=== PATIENT | male | born 1960 | race Caucasian/White ===

== ENCOUNTER 2024-05-27 13:55 | Emergency (ER) | payer MEDICARE, SELFPAY ==
--- NOTE | ~2024-05-27 | CT_ITS ---
EXAMINATION: CT diagnostic chest wo con DATE: 05/27/2024 15:13 INDICATION: R upper lateral chest pain TECHNIQUE: Computed tomography (CT) of the chest was performed without intravenous contrast. Addition al 3D reconstructions utilizing coronal maximum intensity projection (MIP) were performed. Automated exposure control and iterative reconstruction technique were employed. The dose-length product was 28 0.41 mGy-cm. COMPARISON: None FINDINGS: Minimal emphysema. Mild dependent atelectasis in the lower lobes. No pneumonia, pulmonary edema, pleu ral effusion or pneumothorax. Heart size is normal. Atherosclerotic coronary artery calcific lesion. No pericardial effusion. Thoracic aorta is normal in caliber. 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 No pathologically enlarged thoracic lymphadenopathy. Small sliding -type hiatal hernia. Mild thoracic spondylosis. Minimally displaced anterolateral right fifth rib fra cture. IMPRESSION: 1. Minimally displaced anterolateral right fifth rib fracture. No pneumothorax or other acute cardiop ulmonary disease. 2. Small sliding-type hiatal hernia. Reviewed, dictated and finalized at location A. IMPRESSION: 1. Minimally displaced anterolateral right fifth rib fracture. No pneumothorax or other acute cardiopulmonary disease. 2. Small sliding-type hiatal hernia.
--- OUTSIDE RECORDS SUMMARY | 2024-05-27 13:59 | XMS_ITS | Clinical Summary ---
Author Organization [facility] Address [facility] [place] [address] Care Team Providers Care Harmonica Maker Name Role Phone Unavailable Primary Care Provider Unavailabl e Social History Tobacco Use Types Packs/Day Years Used Date Smoking Tobacco: Never Assessed Sex and Gender Information Value Date Recorded Sex Assigned at Not on file Legal Sex Male 7:41 PM CDT Gender Identity Not on file Sexual Orientation Not on file Plan of Treatment Health Maintenance Due Date Last Done Comments Colorectal Cancer Screening Colonoscopy (10 Years) 1958 Hepatitis C 1976 DTaP, Tdap and Td Vaccines ( 1 - Tdap) 1977 Zoster Vaccines (1 of 2) 2008 Pneumococcal Vaccine: 65+ Ye ars (1 of 1 - PCV) 09/26/2023 COVID-19 Vaccine ( - 2023-2 5 season) 2023 Influenza Adult (#1) 2023 RSV Immunization or 60+ Years (1 - 1-dose 75+ series) 2033 Meningococcal B Vaccine Aged Out No l onger eligible based on patient's age to complete this topic Meningococcal Vaccine Aged Out No jake jerilyn eligible based on patient's age to complete this topic Pneumococcal Vaccine: Pediat rics (0 to 5 Years) and At-Risk Patients (6 to 64 Years) Aged Out No longer eligible b ased on patient's age to complete this topic RSV Immunizations Under 20 Months Aged Out No longer eligible based on patient's age to complete this topic
--- OUTSIDE RECORDS SUMMARY | 2024-05-27 13:59 | XMS_ITS | Clinical Summary ---
Author Organization [facility] [employer] Address [address] [place] [address] Care Team Providers Care Gis Consultant Name Role Phone Unavailable Primary Care Provider Unavailabl e Source Comments [facility] [employer],non-owned Affiliates and Associated Physician Practices is amultiple site organization consisting of ambulatory clinics and hospital sitesin [place], [place], [place] and [place]. This disclosure is being madepursuant to the Care Everywhere program and may not contain all information available regarding this patient. Last updated 17.[facility] [employer] Allergies Active Allergy Reactions Criticality Noted Date Comments Penicillins Urticaria Medium 06/08/2018 Immunizations Name Administration Dates Next Due TDAP (7yrs+) 06/08/2018 Social History Tobacco Use Types Packs/Day Years Used Date Smoking Tobacco: Never Assessed Sex and Gender Information Value Date Recorded Sex Assigned at Not on file Gender Identity Not on file Sexual Orientation Not on file Plan of Treatment Health Maintenance Due Date Last Done Comments COLOGUARD (AGES 45-75) - COL ON CA SCREENING 1958 COLON MONITORING 1958 COLONOSCOPY - COLON CA SCREENING 1958 CT COLONOGRAPHY - COLON CA SCREENING 1958 Colorectal Cancer Screening 1958 FIT - COLON CA SCREENING 1958 FLEX SIG - COLON CA SCREENING 1958 LIPID TESTING 1958 HIV SCREENING 1973 HEPATITIS C SCREENING 09/20/1976 PNEUMOCOCCAL VACCINE 50+ (1 of 1 - PCV) 2008 ZOSTER VACCINE (1 of 2) 2008 COVID-19 VACCINE ( - 2023-2 5 season) 2023 DEPRESSION SCREENING 02/24/2024 INFLUENZA VACCINE (Season Ended) 2024 DTAP/TDAP/TD VACCINES (2 - T d or Tdap) 06/08/2028 06/08/2018 Respiratory Syncytial Virus (RSV) Vaccine Pt: or over 60 yrs (1 - 1-dose 75+ series) 2033 HEPATITIS B VACCINE Aged Out No longe r eligible based on patient's age to complete this topic HIB VACCINE Aged Out No longer eligi ble based on patient's age to complete this topic HPV VACCINE Aged Out No longer eligi ble based on patient's age to complete this topic MENINGOCOCCAL (Group B) VACC INE SHARED DECISION-MAKING Aged Out No longer eligibl e based on patient's age to complete this topic MENINGOCOCCAL GROUPS A/C/Y/W VACCINE Aged Out No longer eligible b ased on patient's age to complete this topic
--- OUTSIDE RECORDS SUMMARY | 2024-05-27 13:59 | XMS_ITS | Clinical Summary ---
Author Organization [facility] Address [address] [place] [address] Care Team Providers Care Data Processing Equipment Repairer Name Role Phone Brandon De Paz MD Unavailable Malorie Cedillo DO Primary Care Provider [phone] Allergies Active Allergy Reactions Criticality Noted Date Comments [place] Nausea only Low 11/19/2023 Penicillins Hives,Swelling,Urticaria Medium 10/02/2013 Medications aspirin 81 mg enteric coated tablet Take 1 tablet (81 mg total) by mouth daily Active empagliflozin (JARDIANCE) 25 mg tabletIndicatio ns:type 2 diabetes mellitus Take 1 tablet (25 mg total) by mouth daily 90 tablet 1 4 12/10/19 25 Active tadalafiL (CIALIS) 5 mg tabletIndicatio ns:Erectile dysfunction associated with type 2 diabetes mellitus (HCC) Take 1 tablet (5 mg total) by mouth daily 30 tablet 2 5 Active amLODIPine (NORVASC) 10 mg tabletIndicatio ns:Hypertension associated with diabetes (HCC) TAKE 1 TABLET(10 MG) BY MOUTH EVERY NIGHT 90 tablet 1 5 Active losartan (COZAAR) 100 mg tabletIndicatio ns:Hypertension associated with diabetes (HCC),Type 2 diabetes mellitus without complication, without long-term current use of insulin (HCC) TAKE 1 TABLET(100 MG) BY MOUTH DAILY 90 tablet 1 5 Active tamsulosin (FLOMAX) 0.4 mg extended release capsuleIndicati ons:Benign prostatic hyperplasia without lower urinary tract symptoms TAKE 1 CAPSULE(0. 4 MG) BY MOUTH DAILY 100 capsule 5 Active metFORMIN (GLUCOPHAGE) 1,000 mg tabletIndicatio ns:Type 2 diabetes mellitus without complication, without long-term current use of insulin (HCC) TAKE 1 TABLET(100 0 MG) BY MOUTH TWICE DAILY WITH MEALS 180 tablet 1 5 Active atorvastatin (LIPITOR) 40 mg tabletIndicatio ns:Type 2 diabetes mellitus without complication, without long-term current use of insulin (HCC),Hyperlipi demia associated with type 2 diabetes mellitus (HCC),Presence of stent in coronary artery in patient with coronary artery disease TAKE 1 TABLET(40 MG) BY MOUTH EVERY NIGHT 100 tablet [address] (PROTONIX) 40 mg EC tablet Take 1 tablet (40 mg total) by mouth daily Active chlorthalidone (HYGROTON) 25 mg tablet Take 1 tablet (25 mg total) by mouth daily Active clopidogreL (PLAVIX) 75 mg tabletIndicatio ns:Presence of stent in coronary artery in patient with coronary artery disease TAKE 1 TABLET(75 MG) BY MOUTH DAILY 90 tablet 3 5 Active clopidogreL (PLAVIX) 75 mg tabletIndicatio ns:Thrombosis Prevention after PCI Take 1 tablet (75 mg total) by mouth daily 90 tablet 1 4 05/21/19 25 Discontinued Active Problems Problem Noted Date Diagnosed Date Stage 3a chronic kidney disease 04/12/2024 History of colon polyps 04/01/2024 Hx of colonic polyp 02/08/2024 Screening for colon cancer 01/14/2024 Class 1 obesity due to exces s calories with serious comorbidity and body mass index (BMI) of 30.0 to 30.9 in adult 12/10/2023 Coronary artery disease invo lving kob[place] coronary artery of [place] heart without angina pectoris 12/10/2023 Benign prostatic hyperplasia without lower urinary tract symptoms 12/10/2023 Assessment & Plan (12/10/2023 10:48 AM CDT): Continue current meds, however, will refer to urology, as patient remains symptomatic. Erectile dysfunction associa bob with type 2 diabetes mellitus 12/10/2023 Assessment & Plan (12/10/2023 10:49 AM CDT): Clinically improved, continue current prescription medications. Referred to urology. Cigarette nicotine dependence in remission 12/09 Assessment & Plan (12/10/2023 10:49 AM CDT): CT lung cancer screening ordered. H/O acute myocardial infarction 09/16/2023 Hypertension associated with stage 3a chronic kidney disease due to type 2 diabetes mellitus Assessment & Plan (12/10/2023 10:47 AM CDT): Blood pressure at goal less than 140/90, continue current prescription medications. Hyperlipidemia associated with type 2 diabetes m ellitus Assessment & Plan (12/10/2023 10:48 AM CDT): LDL at goal of less than 100, continue current prescription medications. Type 2 diabetes mellitus wit h stage 3a chronic kidney disease, without long-term current use of insulin Assessment & Plan (12/10/2023 10:48 AM CDT): A1c at goal of less than 8.0, continue current prescription medications. Presence of stent in coronar y artery in patient with coronary artery disease Assessment & Plan (12/10/2023 10:48 AM CDT): Asymptomatic. Stable. Continue current prescription medications. Resolved Problems Problem Noted Date Diagnosed Date Resolved Date Chest pain 10/29/2023 12/10/2023 Status post insertion of michelle g eluting coronary artery stent 10/13/2023 12/10/2023 Encounters Date Type Department Care Team Description 04/25/2024 Results Follow-Up [facility] Nephrology at [address] [place] [id number] David Moya MD 04/20/2024 12:25 PM TELECOMMUNICATION OPERATOR - 04/20/2024 11:59 PM TELECOMMUNICATION OPERATOR Hospital Encounter [facility] [address] [place] [address] CKD stage 3a, GFR 45-59 ml/min ([facility]) Discharge Disposition: Discharge to home or self care 04/12/2024 10:00 AM TELECOMMUNICATION OPERATOR Office Visit [facility] Nephrology at [place] [id number] [facility] [address] [place] [address] David Moya MD CKD stage 3a, GFR 45-59 ml/min (HCC) (Primary Dx); Hypertension associated with diabetes (HCC); Coronary artery disease involving [place] coronary artery of [place] heart without angina pectoris; Proteinuria, unspecified type; Essential hypertension; Type 2 diabetes mellitus with stage 3a chronic kidney disease, without long-term current use of insulin (HCC) 04/01/2024 Orders Only [facility] Gastroenterology at [place] [id number] [facility] [address] [place] [address] Jason Reis MD History of colon polyps (Primary Dx) 03/30/2024 8:15 AM TELECOMMUNICATION OPERATOR Anesthesia Event [facility] [address] [place] [address] Jeff Hernandez MD 03/30/2024 8:00 AM TELECOMMUNICATION OPERATOR - 03/30/2024 8:30 AM TELECOMMUNICATION OPERATOR Surgery [facility] [address] [place] [address] Jason Reis MD COLON REMOVAL SNARE 03/30/2024 6:48 AM TELECOMMUNICATION OPERATOR - 03/30/2024 9:51 AM TELECOMMUNICATION OPERATOR Hospital Encounter [facility] [address] [place] [address] Jason Reis MD Hx of colonic polyp Discharge Disposition: Discharge to home or self care 03/24/2024 2:24 PM TELECOMMUNICATION OPERATOR - 03/24/2024 11:59 PM TELECOMMUNICATION OPERATOR Hospital Encounter [facility] [address] [place] [address] Cigarette nicotine dependence in remission; Screening for AAA (abdominal aortic aneurysm); Personal history of tobacco use, presenting hazards to health Discharge Disposition: Discharge to home or self care 03/09/2024 Telephone [facility] Family Medicine at [facility] [address] [facility] [address] [place] [address] Malorie Cedillo, Med Refill 03/01/2024 Telephone [facility] Family Medicine at [place] [address] [facility] [address] [place] [address] Malorie Cedillo, DO Med Refill from Last 3 Months Immunizations Immunization Administration Dates Next Due Influenza, Trivalent, High D ose, Split, Preservative Free, Intramuscular 12/10/2023 Influenza, Unspecified 12/03/2022,02/04/2022,10/2020 Pneumococcal Conjugate Pcv20 12/10/2023(Deferred : Patient Refused) Tdap 06/08/2018 ZOSTER Recombinant 06/04/2023 Zoster, unspecified 12/03/2022 Surgical History Surgery Date Site/Laterality Comments CARDIAC STENT PLACEMENT 08/24/2023 KNEE SURGERY SURGERY SCROTAL / TESTICULAR FINGER SURGERY Left index amputation Medical History Medical History Date Comments Diabetes mellitus (HCC) Hyperlipidemia Hypertension Coronary artery disease Type 2 diabetes mellitus (HCC) Family History Medical History Relation Name Comments Heart disease Father Prostate cancer Father Lung cancer Mother Relation Name Status Comments Father Mother Social History Tobacco Use Types Packs/Day Years Used Date Smoking Tobacco: Former Cigarettes 1 50.6 0 02/23/1973 - 09/23/2023 Smokeless Tobacco: Never AUDIT-C Answer Date Recorded Q1: How often do you have a drink containing alc ohol? 2-3 times a week 04/12/2024 Q2: How many drinks containi ng alcohol do you have on a typical day when you are drinking? 5 or 6 04/12/2024 Q3: How often do you have si x or more drinks on one occasion? Less than monthly 04/12/2024 PHQ-2 Answer Date Recorded PHQ-2 Total Score (If total score is 3 or more points, staff should administer the PHQ-9) 0 12/10/2023 Personal Safety Answer Date Recorded Have you ever been in or are you currently in a harmful physical or emotional relationship or is someone making you feel afraid or unsafe? Denies 03/30/2024 Sex and Gender Information Value Date Recorded Sex Assigned at Not on file Legal Sex Male 9:43 PM TELECOMMUNICATION OPERATOR Gender Identity Not on file Sexual Orientation Not on file Obstetrics History Last Filed Vital Signs Vital Sign Reading Time Taken Comments Blood Pressure 126/77 04/12/2024 9:49 AM TELECOMMUNICATION OPERATOR Pulse 62 04/12/2024 9:49 AM TELECOMMUNICATION OPERATOR Temperature 36.4 C (97.5 F) 04/12/2024 9:49 AM TELECOMMUNICATION OPERATOR Respiratory Rate 15 03/30/2024 9:30 AM TELECOMMUNICATION OPERATOR Oxygen Saturation 99% 03/30/2024 9:30 AM TELECOMMUNICATION OPERATOR Inhaled Oxygen Concentration - - Weight 86.2 kg (190 lb) 04/12/2024 9:49 AM TELECOMMUNICATION OPERATOR Height 170.2 cm (5' 7 ) 04/12/2024 9:49 AM TELECOMMUNICATION OPERATOR Body Mass Index 29.76 04/12/2024 9:49 AM TELECOMMUNICATION OPERATOR Plan of Treatment Upcoming Encounters Date Type Department Care Team (Late st Contact Info) Description 09/29/2024 7:30 AM CDT Hospital Encounter [facility] [address] [place] [address] Jason Reis MD [address] [place] [address] DR MENDEZ [address] [place] [address] 09/29/2024 7:30 AM CDT - 09/29/2024 7:45 AM CDT Surgery [facility] [address] [place] [address] Jason Reis MD [address] [place] [address] DR MENDEZ [address] [place] [id number] COLONOSCOPY Scheduled Procedures Name Priority Associated Diagnoses Date/Ti me COLONOSCOPY History of colon polyps 09/29/2024 7:30 AM CDT Health Maintenance Due Date Last Done Comments Dilated Eye Exam 1960 Foot Exam 1960 Zoster Vaccine (2 of 2) 07/30/2023 06/04/2023, 12/03 Hemoglobin A1C 06/09/2024 12/10/2023 Lipid Panel 09/15/2024 09/16/2023 Colon Cancer Screening-Colonoscopy 09/27/2024 03/30/2024, 02/08/2024 Albumin Creatinine Ratio, Urine 12/09/2024 12/10/2023 Depression Screening 12/09/2024 12/10/2023 Pneumococcal vaccine 65+ (1 of 2 - PCV) 12/09/2024 Postponed from 1977 (Patient declined, but will receive in the future) Well Visit 65+ 12/09/2024 12/10/2023 eGFR 12/09/2024 12/10/2023, 10/25, 11/19/2023, Additional history exists Lung Cancer Screening 01/12/2025 01/12/2024 Fall Risk Assessment 02/07/2025 02/08/2024, 12/10/19 Prostate Cancer Screening-PSA 12/09/2025 12/10/2023 DTaP/Tdap/Td Vaccine (2 - Td or Tdap) 06/08/2028 06/08/2018 Covid-19 Vaccine Discontinued 06/15/2020, 05/26/2020 Hepatitis B Screening Completed 12/10/2023 Hepatitis C Screening Completed 12/10/2023 Influenza Vaccine Completed 12/10/2023, , 02/04/2022, Additional history exists Abdominal Aortic Aneurysm (AAA) Screen Completed 03/24/2024 Colon Cancer Screening-CT Colonography Discontinued 03/30/2024, 02/08/2024 Colon Cancer Screening-DNA Stool Discontinued 03/30/2024, 02/08/2024 Colon Cancer Screening-FIT Discontinued 03/30/2024, Colon Cancer Screening-Sigmoidoscopy Discontinued 03/30/2024, 02/08/2024 Medical Devices Implanted Type Area Hose Sprayer Device Identifier Shelf Expiration Date Model / Serial / Lot [employer] Cynthia Angio-Seal Vip Bondek-Plus 8fr .038in 70cm Hemostatic Latex Free [id number] - [id number] - [id number] Implanted:Qty : 1 on 11/19/2023 by Vipul Olvera MD PhD at [facility] Collagen N/A: Common Femoral Artery [employer] Cynthia 06/15/2024 [id number] / [id number] / [id number] Medtronic Card Vasc Surgery 2.50 X 26mm Shiloh [place] Rx Coronary Stent [id number] - [id number] - [id number] Implanted:Qty : 1 on 11/19/2023 by Vipul Olvera MD PhD at [facility] Stent N/A: Circumflex Coronary Artery Medtronic Card Vasc Surgery 05/18/2026 [id number] / [id number] / [id number] Procedures Procedure Name Priority Date/Time Associated Diagnosis Comments US KIDNEY COMPLETE Schedule Routine, Read Routine (OP Routine) 04/20/2024 1:23 PM TELECOMMUNICATION OPERATOR CKD stage 3a, GFR 45-59 ml/min (HCC) SURGICAL PATHOLOGY Routine 03/30/2024 8: 42 AM TELECOMMUNICATION OPERATOR Hx of colonic polyp COLON REMOVAL SNARE 03/30/2024 8 :18 AM TELECOMMUNICATION OPERATOR Hx of colonic polyp COLONOSCOPY 03/30/2024 8:09 AM TELECOMMUNICATION OPERATOR POCT GLUCOSE DEVICE Routine 03/30/2024 7 :25 AM TELECOMMUNICATION OPERATOR ABDOMINAL AORTIC ANEURYSM SCREENING Schedule Routine, Read Routine (OP Routine) 03/24/2024 3:25 PM TELECOMMUNICATION OPERATOR Cigarette nicotine dependence in remission Screening for AAA (abdominal aortic aneurysm) Personal history of tobacco use, presenting hazards to health CT LUNG CANCER SCREENING Schedule Routine, Read Routine (OP Routine) 01/12/2024 4:12 PM TELECOMMUNICATION OPERATOR Cigarette nicotine dependence in remission Personal history of tobacco use, presenting hazards to health HEPATITIS C ANTIBODY Routine 12/10/2023 11:41 AM CDT Need for hepatitis C screening test EGFR Routine 12/10/2023 11:41 AM CDT Hypertension associated with diabetes (HCC) Hyperlipidemia associated with type 2 diabetes mellitus (HCC) Type 2 diabetes mellitus without complication, without long-term current use of insulin (HCC) PSA SCREEN Routine 12/10/2023 11:41 AM CDT Screening PSA (prostate specific antigen) ALBUMIN CREATININE RATIO, URINE Routine 12/10/2023 11:36 AM CDT Hypertension associated with diabetes (HCC) Type 2 diabetes mellitus without complication, without long-term current use of insulin (HCC) POCT HEMOGLOBIN A1C Routine 12/10/2023 1 0:20 AM CDT Type 2 diabetes mellitus without complication, without long-term current use of insulin (HCC) POCT LIPID PANEL Routine 09/16/2023 9:16 AM CDT Acute myocardial infarction, unspecified PR type, unspecified artery (HCC) from Last 3 Months or Most Recently Relevant to Health Maintenance Results * US Kidney Complete (04/20/2024 1:23 PM TELECOMMUNICATION OPERATOR) Anatomical Region Laterality Modality Kidney N/A Ultrasound 04/24/2024 9:56 AM TELECOMMUNICATION OPERATOR Narrative 04/24/2024 9:57 AM TELECOMMUNICATION OPERATOR EXAM DESCRIPTION: US KIDNEY COMPLETE REASON FOR STUDY: Chronic kidney disease. TECHNIQUE: Ultrasound of the kidneys and urinary bladder was performed with grayscale imaging. COMPARISON: None. FINDINGS: RIGHT KIDNEY: The right kidney measures 12.6 cm in length. There is no hydronephrosis. There is normal cortical thickness and echogenicity. LEFT KIDNEY: The left kidney measures 12.3 cm in length. There is no hydronephrosis. There is normal cortical thickness and echogenicity. URINARY BLADDER: The urinary bladder, as visualized, appears unremarkable. The bilateral ureteral jets are visualized. OTHER: The liver is increased in echogenicity evidence of steatosis. IMPRESSION: Normal renal ultrasound. Hepatic steatosis. THIS IS AN ELECTRONICALLY VERIFIED FINAL REPORT 04/24/2024 9:57 AM - Electronically signed by David Baker M.D. T: Report ID: [id number] Reading Location: [id number] Procedure Note David Baker Jr., MD - 04/24/2024 EXAM DESCRIPTION: US KIDNEY COMPLETE REASON FOR STUDY: Chronic kidney disease. TECHNIQUE: Ultrasound of the kidneys and urinary bladder was performedwith grayscale imaging. COMPARISON: None. FINDINGS: RIGHT KIDNEY: The right kidney measures 12.6 cm in length.There is no hydronephrosis. There is normal cortical thickness and echogenicity. LEFT KIDNEY: The left kidney measures 12.3 cm in length. There is no hydronephrosis. There is normal cortical thickness and echogenicity. URINARY BLADDER: The urinary bladder, as visualized, appearsunremarkable. The bilateral ureteral jets are visualized. OTHER: The liver is increased in echogenicity evidence of steatosis. IMPRESSION: Normal renal ultrasound. Hepatic steatosis. THIS IS AN ELECTRONICALLY VERIFIED FINAL REPORT 04/24/2024 9:57 AM - Electronically signed by David Baker M.D. T: Report ID: [id number] Reading Location: [id number] David Moya MD [facility] PROCEDURES Final Result * Surgical pathology (03/30/2024 8:42 AM TELECOMMUNICATION OPERATOR) Tissue specimen (specimen) (Polyp(s), colon/colorectal, esophageal, gastric) 03/30/2024 8:42 AM TELECOMMUNICATION OPERATOR Narrative PATHOLOGY [facility] - 03/31/2024 2:15 PM TELECOMMUNICATION OPERATOR [facility] Department of Pathology [address] [place] [address] Note to Patients: This report may contain a detailed description of human tissue sent by a health care provider to the laboratory for pathologic evaluation. The content of this report is essential for diagnosis and may provide important critical findings. This information may be unfamiliar to patients to review without a medical professional present. It is advised that the patient review this report in the presence of a health care provider who can answer questions and explain the details. Final Report Patient Name: ISABEL GAITAN : 1960 (Age: 63) Gender: M Address: [address] [place] [address] Hospital #: [id number] Service: Gastro Location: Patient Type: [facility] OUTPATIENT Taken: 03/30/2024 Received: 03/30/2024 Accessioned: 03/30/2024 Reported: 03/31/2024 Physician(s): Gulshan Walters D.O. Diagnosis: A. Large bowel, ascending colon polyp, biopsy - Sessile serrated adenoma/lesion Misty Singh MD Report Electronically Reviewed and Signed Out By Misty Singh MD 03/31/2024 14:15:23 Specimen(s) Received: A: Ascending colon polyp Microscopic Description: Unless gross-only is specified, the final diagnosis for each specimen is based on a microscopic examination of each tissue sample. Clinical History: The patient is a 63-year-old man with a history of colon polyps. Operative procedure: Colonoscopy with biopsy. Gross Description Received in formalin, labeled with the patient s identifiers and ascending colon polyp hot snare and consists of a 0.5 cm lopez- red, polypoid tissue admixed with debris (resection margin inked black and bisected). Entirely submitted. Labeled A1. Jar 0. [facility]/03/30/2024 13:58 DOLLY Burgos, PA ([facility]) Microscopic slide review and interpretation for this case was performed at [facility], Department of Surgical Pathology, [address] [facility], [place] [id number] [id number] CLIA # [id number] us Jason Reis MD LAB PATHOLOGY ORDERABLES Final R esult PATHOLOGY [facility] * Colonoscopy (03/30/2024 8:09 AM TELECOMMUNICATION OPERATOR) Anatomical Region Laterality Modality Other Narrative Procedure Note Jason Reis MD - 03/30/2024 8:09 AM CST [facility] GI ENDOSCOPY Patient Name: Isabel Gaitan Procedure Date: 03/30/2024 8:09 AM Date of : 1960 Admit Type: Outpatient Age: 63 Gender: Male Attending MD: Jason Reis M.D. Room: [facility] ENDOSCOPY ROOM 03 Note Status: Finalized Procedure: Colonoscopy Indications: Screening for colorectal malignant neoplasm Referring MD: Providers: Jason Reis M.D. Medicines: Monitored Anesthesia Care Complications: No immediate complications. Estimated Blood Loss: Estimated blood loss: none. Procedure: Pre-Anesthesia Assessment: - Prior to the procedure, a History and Physicalwas performed, and patient medications and allergieswere reviewed. The risks and benefits of the procedureand the sedation options and risks were discussed withthe patient. All questions were answered and informed consent was obtained. Patient identification and proposed procedure were verified. After reviewingthe risks and benefits, the patient was deemed in satisfactory condition to undergo the procedure.The anesthesia plan was to use monitored anesthesiacare (MAC). Immediately prior to administration of medications, the patient was re-assessed foradequacy to receive sedatives. The heart rate, respiratory rate, oxygen saturations, blood pressure, adequacyof pulmonary ventilation, and response to care were monitored throughout the procedure. The physical status of the patient was re-assessed after the procedure. The benefits, risks and alternatives of theprocedure and sedation were discussed and informed consentwas obtained. All questions were answered. Please referto the signed informed consent document in the medical record. The scope was passed under direct vision.The Colonoscope was introduced through the anus and advanced to the cecum, identified by appendiceal orifice and ileocecal valve. The colonoscopy was performed without difficulty. The patient tolerated the procedure well. The quality of the bowel preparation was inadequate, specifically in theright colon limiting visualization. Scope withdrawal time was 9 minutes. Prep was administered in a splitdose. Findings: The perianal and digital rectal examinations were normal. A 10 mm polyp was found in the ascending colon. The polyp wassessile. The polyp was removed with a hot snare. Resection and retrieval were complete. Non-bleeding internal hemorrhoids were found during retroflexion. The hemorrhoids were small. The exam was otherwise without abnormality. Impression: - Preparation of the colon was inadequate. - One 10 mm polyp in the ascending colon, removedwith a hot snare. Resected and retrieved. - Non-bleeding internal hemorrhoids. - The examination was otherwise normal. Recommendation: - Patient has a contact number available for emergencies. The signs and symptoms of potential delayed complications were discussed with thepatient. Return to normal activities tomorrow. Written discharge instructions were provided to thepatient. - High fiber diet. - Continue present medications. - Await pathology results. - Repeat colonoscopy in 6 months with extendedbowel prep because the bowel preparation wassuboptimal. Jason Reis M.D. Jason Reis M.D. 03/30/2024 8:54:35 AM . Number of Addenda: 0 Note Initiated On: 03/30/2024 8:09 AM Recognized by the [place] [employer] for promoting quality in endoscopy us Jason Reis MD ENDOSCOPY PROCEDURES Final Resul t * POCT glucose (03/30/2024 7:25 AM TELECOMMUNICATION OPERATOR) Glucose, POC 99 70 - 199 mg/dL Blood 03/30/2024 7:25 AM TELECOMMUNICATION OPERATOR 03/30/2024 7:25 AM TELECOMMUNICATION OPERATOR us Jason Reis MD LAB POCT ORDERABLES - DEVICE Fin al Result [facility] [address] [facility] [place] [address] * US Abdominal Aortic Aneurysm Screening (03/24/2024 3:25 PM TELECOMMUNICATION OPERATOR) Anatomical Region Laterality Modality Abdomen Ultrasound 03/27/2024 7:21 AM TELECOMMUNICATION OPERATOR Narrative 03/27/2024 7:22 AM TELECOMMUNICATION OPERATOR EXAM DESCRIPTION: US ABDOMINAL AORTIC ANEURYSM SCREENING REASON FOR STUDY: personal history of tob use, cigarette use in remission TECHNIQUE: Grayscale images acquired of the aorta and stored on PACS. Selected color Doppler and spectral images recorded. COMPARISON: None. FINDINGS: AORTIC CALIBER MAXIMAL PROXIMAL: 2.3 x 2.3 cm. MID: 2.0 x 2.0 cm. DISTAL: 1.6 x 1.7 cm. ILIAC DIAMETER RIGHT: 0.7 x 0.8 cm. LEFT: 0.6 x 0.7 cm. OTHER: No other significant finding. IMPRESSION: No abdominal aortic aneurysm. REFERENCE: Please see below follow up recommendations for abdominal aortic aneurysm surveillance per Society for Vascular Surgery Guidelines: < 2.6 cm No follow up or future screenings necessary 2.62.9 cm Recommended ultrasound follow up every 5 years 3.0-3.4 cm Recommended ultrasound follow up every 3 years 3.5-3.9 cm Recommended ultrasound follow up every 12 months 4.0-4.9 cm Recommended ultrasound follow up every 12 months, vascular surgery consult 5.0-5.4 cm Recommended ultrasound follow up every 6 months, vascular surgery consult >= 5.5 cm Referral to vascular surgeon Based upon Society for Vascular Surgery Guidelines: J Vasc Surgery 2008 50: s2-s49; updated Feb 2017 J Vasc Surgery 67:2-77 THIS IS AN ELECTRONICALLY VERIFIED FINAL REPORT 03/27/2024 7:22 AM - Electronically signed by David Baker M.D. T: Report ID: [id number] Reading Location: [id number] Procedure Note David Baker Jr., MD - 03/27/2024 EXAM DESCRIPTION: US ABDOMINAL AORTIC ANEURYSM SCREENING REASON FOR STUDY: personal history of tob use, cigarette use inremission TECHNIQUE: Grayscale images acquired of the aorta and stored on PACS.Selected color Doppler and spectral images recorded. COMPARISON: None. FINDINGS: AORTIC CALIBER MAXIMAL PROXIMAL: 2.3 x 2.3 cm. MID: 2.0 x 2.0 cm. DISTAL: 1.6 x 1.7 cm. ILIAC DIAMETER RIGHT: 0.7 x 0.8 cm. LEFT: 0.6 x 0.7 cm. OTHER: No other significant finding. IMPRESSION: No abdominal aortic aneurysm. REFERENCE: Please see below follow up recommendations for abdominal aortic aneurysm surveillance per Society for Vascular Surgery Guidelines: < 2.6 cm No follow up or future screenings necessary 2.62.9 cm Recommended ultrasound follow up every 5 years 3.0-3.4 cm Recommended ultrasound follow up every 3 years 3.5-3.9 cm Recommended ultrasound follow up every 12 months 4.0-4.9 cm Recommended ultrasound follow up every 12 months, vascularsurgery consult 5.0-5.4 cm Recommended ultrasound follow up every 6 months, vascularsurgery consult >= 5.5 cm Referral to vascular surgeon Based upon Society for Vascular Surgery Guidelines: J Vasc Surgery 2009Oct 50: s2-s49; updated Feb 2017 J Vasc Surgery 67:2-77 THIS IS AN ELECTRONICALLY VERIFIED FINAL REPORT 03/27/2024 7:22 AM - Electronically signed by David Baker M.D. T: Report ID: [id number] Reading Location: [id number] Malorie Cedillo DO IMG US PROCEDURES Final Re sult * CT Lung Cancer Screening (01/12/2024 4:12 PM TELECOMMUNICATION OPERATOR) Anatomical Region Laterality Modality Chest N/A Computed Tomogra phy 01/18/2024 7:49 AM TELECOMMUNICATION OPERATOR Narrative 01/18/2024 7:52 AM TELECOMMUNICATION OPERATOR EXAM DESCRIPTION: CT LUNG CANCER SCREENING REASON FOR STUDY: Screening CT of the chest in a former smoker with a 50 pack year smoking history. Additional history: None. TECHNIQUE: Low dose CT scan of the chest was performed without intravenous contrast using helical scanning technique. The exam extends from the lung apices through the lung bases. Automatic exposure control was used as a dose optimization technique. NOTE: This study was performed for the specific purposes of lung cancer screening and is not an alternative to diagnostic chest CT. RADIATION DOSE: CT dose index volume (CTDIvol) = 2.25 mGy COMPARISON: None FINDINGS: SMOKING RELATED LUNG DISEASE: Mild centrilobular pulmonary emphysema. LUNG NODULES: No suspicious pulmonary nodules. CORONARY ARTERY CALCIFICATION: Present. OTHER: The heart appears mildly enlarged. Small mediastinal lymph nodes although without eladia enlargement by size criteria.. No acute findings in the visualized upper abdomen given low-dose technique. No acute skeletal abnormality. IMPRESSION: No suspicious pulmonary nodules. Mild pulmonary emphysema. Coronary artery calcification. Lung-RADS category 1: Negative. Recommendation: Low dose Screening CT of chest in 12 months. THIS IS AN ELECTRONICALLY VERIFIED FINAL REPORT 01/18/2024 7:52 AM - Electronically signed by Anibal Diez M.D., JR T: Report ID: [id number] Reading Location: [place] [address] Procedure Note Anibal Diez MD - 01/18/2024 EXAM DESCRIPTION: CT LUNG CANCER SCREENING REASON FOR STUDY: Screening CT of the chest in a former smoker with a50 pack year smoking history. Additional history: None. TECHNIQUE: Low dose CT scan of the chest was performed without intravenous contrast using helical scanning technique. The exam extends from the lung apices through the lung bases. Automatic exposure control was used as adose optimization technique. NOTE: This study was performed for the specific purposes of lung cancer screening and is not an alternative to diagnostic chest CT. RADIATION DOSE: CT dose index volume (CTDIvol) = 2.25 mGy COMPARISON: None FINDINGS: SMOKING RELATED LUNG DISEASE: Mild centrilobular pulmonary emphysema. LUNG NODULES: No suspicious pulmonary nodules. CORONARY ARTERY CALCIFICATION: Present. OTHER: The heart appears mildly enlarged. Small mediastinal lymph nodes although without eladia enlargement by size criteria.. No acute findingsin the visualized upper abdomen given low-dose technique. No acute skeletal abnormality. IMPRESSION: No suspicious pulmonary nodules. Mild pulmonary emphysema. Coronary artery calcification. Lung-RADS category 1: Negative. Recommendation: Low dose Screening CT of chest in 12 months. THIS IS AN ELECTRONICALLY VERIFIED FINAL REPORT 01/18/2024 7:52 AM - Electronically signed by Anibal Diez M.D., JR T: Report ID: [id number] Reading Location: [place] [address] Malorie Cedillo DO IMG CT PROCEDURES Final Re sult * (ABNORMAL) eGFR (12/10/2023 11:41 AM CDT) eGFR 57(L) >=60 mL/min/1. 73 m2 Comment: Interpretive Data Reference Interval Normal >/= 90 mL/min/1.73m2 Mildly decreased* 60 - 89 mL/min/1.73m2 Mildly to moderately decreased 45 - 59 mL/min/1.73m2 Moderately to severely decreased 30 - 44 mL/min/1.73m2 Severely decreased 15 - 29 mL/min/1.73m2 Kidney Failure < 15 mL/min/1.73m2 *Relative to young adult level Estimated glomerular filtration rate is determined by the 2020 CKD-EPI equation recommended by the National Kid[employer] (A Unifying Approach to GFR Estimation: Recommendations of the NKF-ASK Task Force on Reassessing the Inclusion of Race in Diagnosing Kidney Disease, JASN 2020). The CKD-EPI equation should not be used for patients with unstable renal function and has not been validated in children and those over 70. Current interpretive data was last reviewed 2020. Blood 12/10/2023 11:4 1 AM CDT 12/10/2023 12:02 PM CDT Malorie Cedillo DO LAB BLOOD ORDERABLES Final Result [facility] [address] [facility] [place] [address] * PSA screen (12/10/2023 11:41 AM CDT) PSA-Total 1.40 <=5.40 ng/mL Comment: Interpretive Data AGE SEX REFERENCE INTERVAL 0 minutes-150 years Female None 0 minutes-49 years Male None 50-59 years Male 0-3.90 60-69 years Male 0-5.40 70-79 years Male 0-6.20 80-150 years Male 0-6.20 The Russell PSA Total assay procedure was used. Results from different manufacturers or methods may not be comparable. Serial testing should be performed using the same method. Current interpretive data last revised 21. Blood 12/10/2023 11:4 1 AM CDT 12/10/2023 12:02 PM CDT Malorie Cedillo DO LAB BLOOD ORDERABLES Final Result Performing Organization Address [facility] de Phone Number [address] [address] * Hepatitis C antibody Blood (12/10/2023 11:41 AM CDT) Pathologist [facility] Hep C Ab Nonreactive Nonreactive Comment: Antibodies to HCV not detected. Does NOT exclude the possibility of recent exposure to HCV. Current interpretive data was last revised on 21 Interpretive Data Nonreactive: Antibodies to HCV not detected. Does NOT exclude the possibility of recent exposure to HCV. Equivocal: Equivocal for HCV antibodies. Supplemental molecular testing will be automatically performed to determine infection status in accordance with current CDC screening recommendations. Reactive: Positive for HCV antibodies. This may represent current or past HCV infection. Supplemental molecular testing will be automatically performed to determine current infection status in accordance with current CDC screening recommendations. Interpretive data was last revised on 2019. Blood 12/10/2023 11:4 1 AM CDT 12/10/2023 12:02 PM CDT Malorie Cedillo DO LAB MICROBIOLOGY - GENERAL ORDERABLES Final Result Performing Organization Address [facility] de Phone Number [address] [address] * (ABNORMAL) Albumin Creatinine Ratio, Urine (12/10/2023 11:36 AM CDT) Pathologist [facility] Albumin Ur 30.5 mg/L Comment: Interpretive Data No reference range established. Current interpretive data was last revised 2018. Creatinine Ur 99.5 mg/dL [facility] Comment: Interpretive Data No reference range established. Current interpretive data was last revised 2018. Albumin Creatinine Ratio, Ur 31(H) 1 - 29 mg/g [facility] Urine 12/10/2023 11:3 6 AM CDT 12/10/2023 12:13 PM CDT Malorie Cedillo DO LAB URINE ORDERABLES Final Result [facility] [address] [facility] [place] [address] * POCT hemoglobin A1c (12/10/2023 10:20 AM CDT) Hemoglobin A1C, POC 6.5 4.0 - 5.6 % Capillary blood 12/10/2023 1 0:20 AM CDT Malorie Cedillo DO POINT OF CARE TEST ORDERAB LES Final Result * POCT lipid panel (09/16/2023 9:16 AM CDT) Cholesterol, POC 159 mg/dL HDL, POC 28 mg/dL Triglycerides, POC 159 mg/dL LDL Cholesterol POC 99 mg/dL Chol/HDL Ratio, POC 5.7 Non-HDL Cholesterol, POC 131 mg/dL Cholesterol Total, POC 159 mg/dL Capillary blood 09/16/2023 9 :16 AM CDT Brandon De Paz MD POINT OF CARE TEST ORDER [place] Final Result from Last 3 Months or Most Recently Relevant to Health Maintenance Insurance [facility] MEDICARE ADVANTAGE [facility] UHC MEDICARE ADVANTAGE Advance Directives For more information, please contact: [phone] Documents on File Type Date Recorded Patient Head Of Stock Expl anation ADVANCE DIRECTIVE 12/10/2023 2:13 PM DNR * Full Code (Latest Code Status on File) Date Activated Date Inactivated Comments 11/19/2023 9:14 AM 11/19/2023 5:49 PM Care Teams Data Processing Equipment Repairer Relationship Specialty Start Date End Date Malorie Cedillo DO [address] [place] [address] [place] [id number] PCP - General Family Medicine 12/10/23 Brandon De Paz MD [address] [address] Consulting Physician Cardiology 11/20/23
--- OUTSIDE RECORDS SUMMARY | 2024-05-27 13:59 | XMS_ITS | Referral Summary ---
Author Organization [facility] Address [address] [place] [address] Care Team Providers Care Superintendent Power Name Role Phone Brandon De Paz MD Unavailable [phone] Malorie Cedillo DO Primary Care Provider [phone] Encounters Date Type Department Care Team Description 04/25/2024 Results Follow-Up [facility] Nephrology at [address] [address] David Moya MD 04/20/2024 12:25 PM TRICK RODEO RIDER - 04/20/2024 11:59 PM TRICK RODEO RIDER Hospital Encounter [address] [address] CKD stage 3a, GFR 45-59 ml/min (HCC) Discharge Disposition: Discharge to home or self care 04/12/2024 10:00 AM TRICK RODEO RIDER Office Visit [facility] Nephrology at [address] [phone] David Moya MD CKD stage 3a, GFR 45-59 ml/min (HCC) (Primary Dx); Hypertension associated with diabetes (HCC); 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; Proteinuria, unspecified type; Essential hypertension; Type 2 diabetes mellitus with stage 3a chronic kidney disease, without long-term current use of insulin (HCC) 04/01/2024 Orders Only [facility] Gastroenterology at [address] [place] [address] Jason Reis MD History of colon polyps (Primary Dx) 03/30/2024 8:15 AM TRICK RODEO RIDER Anesthesia Event [facility] GI Lab [address] [place] [address] Jeff Hernandez MD 03/30/2024 8:00 AM TRICK RODEO RIDER - 03/30/2024 8:30 AM TRICK RODEO RIDER Surgery [facility] GI [facility] [address] [place] [address] Jason Reis MD COLON REMOVAL SNARE 03/30/2024 6:48 AM TRICK RODEO RIDER - 03/30/2024 9:51 AM TRICK RODEO RIDER Hospital Encounter [facility] GI Lab [address] [place] [address] Jason Reis MD Hx of colonic polyp Discharge Disposition: Discharge to home or self care 03/24/2024 2:24 PM TRICK RODEO RIDER - 03/24/2024 11:59 PM TRICK RODEO RIDER Hospital Encounter [facility] [address] [place] [address] Cigarette nicotine dependence in remission; Screening for AAA (abdominal aortic aneurysm); Personal history of tobacco use, presenting hazards to health Discharge Disposition: Discharge to home or self care 03/09/2024 Telephone [facility] Family Medicine at [facility] [address] [place] [phone] Malorie Cedillo, DO Med Refill 03/01/2024 Telephone [facility] Family Medicine at [facility] [address] [place] [phone] Malorie Cedillo, DO Med Refill from Last 3 Months Allergies Active Allergy Reactions Criticality Noted Date Comments Given Nausea only Low 11/19/2023 Penicillins Hives,Swelling,Urticaria Medium 10/02/2013 Medications aspirin 81 mg enteric coated tablet Take 1 tablet (81 mg total) by mouth daily Active empagliflozin (JARDIANCE) 25 mg tabletIndicatio ns:type 2 diabetes mellitus Take 1 tablet (25 mg total) by mouth daily 90 tablet 1 12/09/20 25 Active tadalafiL (CIALIS) 5 mg tabletIndicatio ns:Erectile dysfunction associated with type 2 diabetes mellitus ([facility]) Take 1 tablet (5 mg total) by mouth daily 30 tablet 2 5 Active amLODIPine (NORVASC) 10 mg tabletIndicatio ns:Hypertension associated with diabetes ([facility]) TAKE 1 TABLET(10 MG) BY MOUTH EVERY NIGHT 90 tablet 1 5 Active losartan (COZAAR) 100 mg tabletIndicatio ns:Hypertension associated with diabetes ([facility]),Type 2 diabetes mellitus without complication, without long-term current use of insulin ([facility]) TAKE 1 TABLET(100 MG) BY MOUTH DAILY 90 tablet 1 5 Active tamsulosin (FLOMAX) 0.4 mg extended release capsuleIndicati ons:Benign prostatic hyperplasia without lower urinary tract symptoms TAKE 1 CAPSULE(0. 4 MG) BY MOUTH DAILY 100 capsule 5 Active metFORMIN (GLUCOPHAGE) 1,000 mg tabletIndicatio ns:Type 2 diabetes mellitus without complication, without long-term current use of insulin ([facility]) TAKE 1 TABLET(100 0 MG) BY MOUTH TWICE DAILY WITH MEALS 180 tablet 1 5 Active atorvastatin (LIPITOR) 40 mg tabletIndicatio ns:Type 2 diabetes mellitus without complication, without long-term current use of insulin ([facility]),Hyperlipi demia associated with type 2 diabetes mellitus ([facility]),Presence of stent in coronary artery in patient [...] adult 12/10/2023 Coronary artery disease invo lving upper sioux coronary artery of upper sioux heart without angina pectoris 12/10/2023 Benign prostatic [...] g eluting coronary artery stent 10/13/2023 12/10/2023 Immunizations Immunization Administration Dates Next Due Influenza, Trivalent, High D ose, Split, Preservative Free, Intramuscular 12/10/2023 Influenza, Unspecified 12/03/2022,02/04/2022,10/2020 Pneumococcal Conjugate Pcv20 12/10/2023(Deferred : Patient Refused) Tdap 06/08/2018 ZOSTER Recombinant 06/04/2023 Zoster, unspecified 12/03/2022 Social History Tobacco Use Types Packs/Day Years [...] on file Legal Sex Male 9:43 PM TRICK RODEO RIDER Gender Identity Not on file Sexual Orientation Not on file Last Filed Vital Signs Vital Sign Reading Time Taken Comments Blood Pressure 126/77 04/12/2024 9:49 AM TRICK RODEO RIDER Pulse 62 04/12/2024 9:49 AM TRICK RODEO RIDER Temperature 36.4 C (97.5 F) 04/12/2024 9:49 AM TRICK RODEO RIDER Respiratory Rate 15 03/30/2024 9:30 AM TRICK RODEO RIDER Oxygen Saturation 99% 03/30/2024 9:30 AM TRICK RODEO RIDER Inhaled Oxygen Concentration - - Weight 86.2 kg (190 lb) 04/12/2024 9:49 AM TRICK RODEO RIDER Height 170.2 cm (5' 7 ) 04/12/2024 9:49 AM TRICK RODEO RIDER Body Mass Index 29.76 04/12/2024 9:49 AM TRICK RODEO RIDER Plan of Treatment Upcoming Encounters Date Type Department Care Team (Late st Contact Info) Description 09/29/2024 7:30 AM CDT Hospital Encounter [facility] GI Lab [address] [place] [address] Jason Reis MD [address] [place] [address] DR MENDEZ [address] [place] [address] 09/29/2024 7:30 AM CDT - 09/29/2024 7:45 AM CDT Surgery [facility] GI Lab [address] [place] [address] Jason Reis MD [facility] [address] MEN[address] [place] [address] COLONOSCOPY Scheduled Procedures Name Priority Associated Diagnoses Date/Ti me COLONOSCOPY History of colon polyps 09/29/2024 7:30 AM CDT Medical Devices Implanted Type Area Picker / Packer Device Identifier Shelf Expiration Date Model / Serial / Lot [employer] Angio-Seal Vip Bondek-Plus 8fr .038in 70cm Hemostatic Latex Free [id number] - [id number] - [id number] Implanted:Qty : 1 on 11/19/2023 by Vipul Olvera MD PhD at [facility] Collagen N/A: Common Femoral Artery [employer] Cyn[employer] 06/15/2024 [id number] / [id number] / [id number] Medtronic Card Vasc Surgery 2.50 X 26mm [place] Rx Coronary Stent [id number] - [id number] - [id number] Implanted:Qty : 1 on 11/19/2023 by Vipul Olvera MD PhD at [facility] Stent N/A: Circumflex Coronary Artery Medtronic Card Vasc Surgery 05/18/2026 [id number] / [id number] / [id number] Procedures Procedure Name Priority Date/Time Associated Diagnosis Comments US KIDNEY COMPLETE Schedule Routine, Read Routine (OP Routine) 04/20/2024 1:23 PM TRICK RODEO RIDER CKD stage 3a, GFR 45-59 ml/min (HCC) SURGICAL PATHOLOGY Routine 03/30/2024 8: 42 AM TRICK RODEO RIDER Hx of colonic polyp COLON REMOVAL SNARE 03/30/2024 8 :18 AM TRICK RODEO RIDER Hx of colonic polyp COLONOSCOPY 03/30/2024 8:09 AM TRICK RODEO RIDER POCT GLUCOSE DEVICE Routine 03/30/2024 7 :25 AM TRICK RODEO RIDER ABDOMINAL AORTIC ANEURYSM SCREENING Schedule Routine, Read Routine (OP Routine) 03/24/2024 3:25 PM TRICK RODEO RIDER Cigarette nicotine dependence in remission Screening for AAA (abdominal aortic aneurysm) Personal history of tobacco use, presenting hazards to health CT LUNG CANCER SCREENING Schedule Routine, Read Routine (OP Routine) 01/12/2024 4:12 PM TRICK RODEO RIDER Cigarette nicotine dependence in remission Personal history [...] 9:16 AM CDT Acute myocardial infarction, unspecified CT type, unspecified artery (HCC) from Last 3 Months or Most Recently Relevant to Health Maintenance Results * US Kidney Complete (04/20/2024 1:23 PM TRICK RODEO RIDER) Anatomical Region Laterality Modality Kidney N/A Ultrasound 04/24/2024 9:56 AM TRICK RODEO RIDER Narrative 04/24/2024 9:57 AM TRICK RODEO RIDER EXAM DESCRIPTION: US KIDNEY COMPLETE REASON FOR [...] by David Baker M.D. T: Report ID: [id number] Reading Location: [place] [address] Procedure Note David Baker Jr., MD - [...] by David Baker M.D. T: Report ID: [id number] Reading Location: [place] [address] us David Moya MD IM US PROCEDURES Final Result * Surgical pathology (03/30/2024 8:42 AM TRICK RODEO RIDER) Tissue specimen (specimen) (Polyp(s), colon/colorectal, esophageal, gastric) 03/30/2024 8:42 AM TRICK RODEO RIDER Narrative PATHOLOGY [facility] - 03/31/2024 2:15 PM TRICK RODEO RIDER [facility] Department of Pathology [address] [place] [address] Note to Patients: This report may contain [...] : 1960 (Age: 63) Gender: M Address: [address] [place] [address] Hospital #: [id number] Service: Gastro Location: Patient Type: [facility] OUTPATIENT Taken: 03/30/2024 Received: 03/30/2024 Accessioned: [...] bisected). Entirely submitted. Labeled A1. Jar 0. [facility]/03/30/2024 13:58 DOLLY Burgos, PA (ASCP) Microscopic slide review and interpretation for this case was performed at [facility], Department of Surgical Pathology, [address] [facility], [place] [id number], [place] [id number] CLIA # [id number] us Jason Reis MD LAB PATHOLOGY ORDERABLES Final R esult PATHOLOGY [facility] * Colonoscopy (03/30/2024 8:09 AM TRICK RODEO RIDER) Anatomical Region Laterality Modality Other Narrative Procedure Note Jason Reis MD - 03/30/2024 8:09 AM CST [facility] GI ENDOSCOPY Patient Name: Isabel Gaitan Procedure Date: 03/30/2024 8:09 AM Date of : 1960 Admit Type: Outpatient Age: 63 Gender: Male Attending MD: Jason Reis M.D. Room: [facility] ENDOSCOPY ROOM 03 Note Status: Finalized Procedure: [...] On: 03/30/2024 8:09 AM Recognized by the [employer] for promoting quality in endoscopy us Jason Reis MD ENDOSCOPY PROCEDURES Final Resul t * POCT glucose (03/30/2024 7:25 AM TRICK RODEO RIDER) Glucose, POC 99 70 - 199 mg/dL Blood 03/30/2024 7:25 AM TRICK RODEO RIDER 03/30/2024 7:25 AM TRICK RODEO RIDER us Jason Reis MD LAB POCT ORDERABLES - DEVICE Fin al Result [id number] [address] [facility] Department [place] [address] * US Abdominal Aortic Aneurysm Screening (03/24/2024 3:25 PM TRICK RODEO RIDER) Anatomical Region Laterality Modality Abdomen Ultrasound 03/27/2024 7:21 AM TRICK RODEO RIDER Narrative 03/27/2024 7:22 AM TRICK RODEO RIDER EXAM DESCRIPTION: US ABDOMINAL AORTIC ANEURYSM SCREENING [...] by David Baker M.D. T: Report ID: [id number] Reading Location: [place] [address] Procedure Note David Baker Jr., MD - [...] by David Baker M.D. T: Report ID: [id number] Reading Location: [place] [address] us Malorie Cedillo DO IMG US PROCEDURES Final Re sult * CT Lung Cancer Screening (01/12/2024 4:12 PM TRICK RODEO RIDER) Anatomical Region Laterality Modality Chest N/A Computed Tomogra phy 01/18/2024 7:49 AM TRICK RODEO RIDER Narrative 01/18/2024 7:52 AM TRICK RODEO RIDER EXAM DESCRIPTION: CT LUNG CANCER SCREENING REASON [...] Anibal Diez M.D., JR T: Report ID: [id number] Reading Location: [place] [address] Procedure Note Anibal Diez MD - 01/18/2024 [...] Anibal Diez M.D., JR T: Report ID: [id number] Reading Location: [place] [address] us Malorie Cedillo DO IMG CT PROCEDURES Final [...] 1 AM CDT 12/10/2023 12:02 PM CDT us Malorie Cedillo DO LAB BLOOD ORDERABLES Final Result [facility] [address] [facility] Department of Laboratories [place], [place] [id number] * PSA screen (12/10/2023 11:41 AM CDT) [...] BLOOD ORDERABLES Final Result Performing Organization Address [facility] Co de Phone Number [facility] [address] [address] * Hepatitis C antibody Blood (12/10/2023 11:41 AM CDT) Pathologist [facility] Hep C Ab Nonreactive Nonreactive Comment: Antibodies [...] GENERAL ORDERABLES Final Result Performing Organization Address [facility] de Phone Number [address] [address] * (ABNORMAL) Albumin Creatinine Ratio, Urine (12/10/2023 11:36 AM CDT) Albumin Ur 30.5 mg/L Comment: Interpretive Data No reference range established. Current interpretive data was last revised 2018. Creatinine Ur 99.5 mg/dL [facility] Comment: Interpretive Data No reference range established. Current interpretive data was last revised 2018. Albumin Creatinine Ratio, Ur 31(H) 1 - 29 mg/g [facility] Urine 12/10/2023 11:3 6 AM CDT 12/10/2023 12:13 PM CDT Malorie Cedillo DO LAB URINE ORDERABLES Final Result [facility] [address] [facility] Department [place] [address] * POCT hemoglobin A1c (12/10/2023 10:20 AM [...] Most Recently Relevant to Health Maintenance Insurance [facility] MEDICARE ADVANTAGE [facility] UHC MEDICARE ADVANTAGE Advance Directives For more information, please contact: [phone] Documents on File Type Date Recorded Patient Machining Manager Expl anation ADVANCE DIRECTIVE 12/10/2023 2:13 PM DNR * Full Code (Latest Code Status on File) Date Activated Date Inactivated Comments 11/19/2023 9:14 AM 11/19/2023 5:49 PM Care Teams Superintendent Power Relationship Specialty Start Date End Date Malorie Cedillo DO [address] [facility] [address] [place] [address] PCP - General Family Medicine 12/10/23 Brandon De Paz MD [address] [facility] [address] [place] [address] Consulting Physician Cardiology 11/20/23
--- OUTSIDE RECORDS SUMMARY | 2024-05-27 13:59 | XMS_ITS | Encounter Summary ---
Author Organization [facility] Healthcare Address [address] [place] [address] Care Team Providers Care Supervisor Functional Testing Name Role Phone Brandon De Paz MD Unavailable [phone] Malorie Cedillo DO Primary Care Provider [phone] Encounter Details Date Type Department Care Team (Late st Contact Info) Description 04/25/2024 Results Follow-Up [facility] Nephrology at [address] [place] [address] David Moya MD [address] [place] [address] [address] [place] [address] Social History Tobacco Use Types Packs/Day Years [...] on file Legal Sex Male 9:43 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 Gender Identity Not on file Sexual Orientation Not on file documented as of this encounter Plan of Treatment Upcoming Encounters Date Type Department Care Team (Late st Contact Info) Description 09/29/2024 7:30 AM CDT Hospital Encounter [facility] GI Lab [address] [place] [address] Jason Reis MD [address] [facility] [address] [place] [address] 09/29/2024 7:30 AM CDT - 09/29/2024 7:45 AM CDT Surgery [facility] GI Lab [address] [place] [address] Jason Reis MD [address] [facility] [address] [place] [address] COLONOSCOPY Scheduled Procedures Name Priority Associated Diagnoses Date/Ti me COLONOSCOPY History of colon polyps 09/29/2024 7:30 AM CDT documented as of this encounter Visit Diagnoses Not on filedocumented in this encounter Care Teams Supervisor Functional Testing Relationship Specialty Start Date End Date Malorie Cedillo DO [address] [facility] [address] [place] [address] PCP - General Family Medicine 12/10/23 Brandon De Paz MD [address] [address] Consulting Physician Cardiology 11/20/23 documented as of this encounter
--- OUTSIDE RECORDS SUMMARY | 2024-05-27 13:59 | XMS_ITS | Clinical Summary ---
Author Organization [facility] Address [address] [place] [address] Care Team Providers Care Dye Range Feeder Name Role Phone Anju Ignacio APRN, JOSHUA Primary Care Pr ovider Allergies Active Allergy Reactions Criticality Noted Date Comments Bryan Extract Diarrhea 08/17/2023 Penicillins Hives Medium 06/08/2018 Medications amLODIPine (NORVASC) 10 MG Tablet Take 10 mg by mouth daily. 04/20/2023 Active atorvastatin (LIPITOR) 40 MG Tablet Take 40 mg by mouth daily. 04/20/2023 Active chlorthalidone (HYGROTON) 25 MG Tablet Take 25 mg by mouth daily. 04/20/2023 Active Jardiance 25 MG Tablet Take 25 mg by mouth daily. 04/20/2023 Active losartan (COZAAR) 100 MG Tablet Take 100 mg by mouth daily. 04/20/2023 Active metFORMIN (GLUCOPHAGE) 1000 MG Tablet Take 1,000 mg by mouth. 04/20/2023 Active tamsulosin (FLOMAX) 0.4 MG Capsule Take 0.4 mg by mouth every morning. 04/20/2023 Active aspirin 81 MG Chewable Tablet Take 1 Tablet by mouth daily. 100 Tablet 08/19/2023 Active clopidogrel (PLAVIX) 75 MG Tablet Take 1 Tablet by mouth daily. 90 Tablet 2 08/19/2023 Active Active Problems Problem Noted Date Diagnosed Date Acute non-ST elevation myocardial infarction (NS [place]ARY[place]) 08/17/2023 Sinus bradycardia 08/17/2023 Acute kidney injury 08/17/2023 Encounter for smoking cessation counseling 08/16 Diabetes mellitus 01/25/2023 Hyperlipidemia 01/25/2023 Hypertensive disorder 01/25/2023 Continuous tobacco abuse 11/05/2021 Social History Tobacco Use Types Packs/Day Years Used Date Smoking Tobacco: Never Smokeless Tobacco: Never Tobacco Cessation:Counseling Given: Not Answered Alcohol Use Standard Drinks/Week Comments Not Currently 0 (1 standard drink = 0.6 oz pur e alcohol) [facility] Utilities Answer Date Recorded In the past 12 months has e [employer], gas, oil, or water [employer] threatened to shut off services in your home? No 08/17/2023 Social Connection and Isolat ion Panel [NHANES] Answer Date Recorded In a typical week, how many times do you talk on the phone with family, friends, or neighbors? More than three times a week 08/17/2023 How often do you get togethe r with friends or relatives? More than three times a week 08/17/2023 How often do you attend chur or gnosticist services? More than 4 times per year 08/17/2023 Do you belong to any clubs o r organizations such as yarsanism groups, unions, fraternal or athletic groups, or school groups? Yes 08/17/2023 How often do you attend meet ings of the clubs or organizations you belong to? More than 4 times per year 08/17/2023 Are you , , di vorced, , never , or living with a partner? 08/17/2023 AUDIT-C Answer Date Recorded Q1: How often do you have a drink containing alc ohol? 2-3 times a week 08/17/2023 Q2: How many drinks containi ng alcohol do you have on a typical day when you are drinking? 5 or 6 08/17/2023 Q3: How often do you have si x or more drinks on one occasion? Less than monthly 08/17/2023 Overall Financial Resource Strain (CARDIA) Answe r Date Recorded How hard is it for you to pa y for the very basics like food, housing, medical care, and heating? Not hard at all 08/17/2023 [facility] [place] of Occupat ional Health - Occupational Stress Questionnaire Answer Date Recorded Do you feel stress - tense, restless, nervous, or anxious, or unable to sleep at night because your mind is troubled all the time - these days? Not at all 08/17/2023 Exercise Vital Sign Answer Date Recorde d On average, how many days pe r week do you engage in moderate to strenuous exercise (like a brisk walk)? 3 days 08/17/2023 On average, how many minutes do you engage in exercise at this level? 90 min 08/17/2023 Hunger Vital Sign Answer Date Recorded Within the past 12 months, y ou worried that your food would run out before you got the money to buy more. Never true 08/17/19 Within the past 12 months, t he food you bought just didn't last and you didn't have money to get more. Never true 08/17/2023 PRAPARE - Transportation Answer Date Re corded In the past 12 months, has l ack of transportation kept you from medical appointments or from getting medications? No 07/25 In the past 12 months, has l ack of transportation kept you from meetings, work, or from getting things needed for daily living? No 08/17/2023 Housing Stability Vital Sign Answer Angel e Recorded In the last 12 months, was t here a time when you were not able to pay the mortgage or rent on time? No 08/17/2023 In the past 12 months, how m any times have you moved where you were living? 1 08/17/2023 At any time in the past 12 m [facility], were you homeless or living in a penitentiary (including now)? 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 Gender Identity Not on file Sexual Orientation Not on file Last Filed Vital Signs Vital Sign Reading Time Taken Comments Blood Pressure 135/78 08/19/2023 8:02 AM CDT Pulse 51 08/19/2023 8:02 AM CDT Temperature 36.7 C (98 F) 08/19/2023 8:02 AM CDT Respiratory Rate 18 08/19/2023 8:02 AM CDT Oxygen Saturation 94% 08/19/2023 8:02 AM CDT Inhaled Oxygen Concentration - - Weight 87.1 kg (192 lb) 08/17/2023 11:10 PM CDT Height 170.2 cm (5' 7 ) 08/17/2023 11:10 PM CDT Body Mass Index 30.07 08/17/2023 11:10 PM CDT Plan of Treatment Health Maintenance Due Date Last Done Comments Diabetes: Eye Exam 1958 Diabetes: Foot Exam 1958 Diabetes: Hemoglobin A1c 1958 Hepatitis C Virus (HCV) Screening 1958 Pneumococcal Immunization (5 0+ years) (1 of 2 - PCV) 1977 Cologuard 2008 Immunochemical Fecal Occult Blood 2008 PSA Discussion 2013 Respiratory Syncytial Virus (RSV) Immunization (Adult) (1 - Risk 60-74 years 1-dose series) 2018 Colonoscopy 02/22/2023 02/22/2013 Colorectal Cancer Screening 02/22/2023 Zoster Immunization (2 of 2) 07/30/202312/2023, 12/03/2022 Influenza Immunization (#1) 10/25/202311/23, 02/04/2022, 01/01/2021 SARS-COV-2 Immunization ( - season) 2023 06/15/2020, 05/26/2020 Diabetes: Nephropathy Screening 08/16/2024 08/17/2023 02/22/2013 DTaP/Tdap/Td Immunization Discontinued 06/08/2018 TdaP Immunization Completed 06/08/2018 Hepatitis B Immunization Aged Out No longer eligible based on patient's age to complete this topic Meningococcal Immunization (ACWY) Aged Out No longer eligible based on patient's age to complete this topic Rotavirus Immunization Aged Out No lo nger eligible based on patient's age to complete this topic Medical Devices Implanted Type Area Psychiatric Rn Device Identifier Shelf Expiration Date Model / Serial / Lot System Coronary Stent Xience Skypoint Everolimus Eluting 3.50 Mm X 38 Mm / Rapid-Exchange - [id number] Implanted:Qty: 1 on 08/18/2023 by Wilber Magaña MD at [facility] IMPLANT Right: Coronary [employer] 01/28/2026 [id number] / [id number] Description:Mid RCA System Coronary Stent Xience Skypoint Everolimus Eluting 4.00 Mm X 23 Mm / Rapid-Exchange - [id number] Implanted:Qty: 1 on 08/18/2023 by Wilber Magaña MD at [facility] IMPLANT Right: Coronary [employer] 03/18/2026 [id number] / [id number] Description:RCA Device Perclose Prostyle Suture-Mediate d Closure And Repair System - [id number] Implanted:Qty: 1 on 08/18/2023 by Wilber [facility] at [facility] IMPLANT Right: Groin [employer] 04/22/2025 [id number] / [id number] / [id number] Procedures Procedure Name Priority Date/Time Associated Diagnosis Comments CMP (COMPREHENSIVE METABOLIC PANEL) STAT 08/17/2023 2:47 PM CDT from Last 3 Months or Most Recently Relevant to Health Maintenance Results * (ABNORMAL) CMP (Comprehensive Metabolic Panel) (08/17/2023 2:47 PM CDT) SODIUM 136 136 - 145 mmol/L 08/17/2023 3:08 PM CDT [facility] POTASSIUM 3.9 3.5 - 5.1 mmol/L 08/17/2023 3:08 PM CDT [facility] CHLORIDE 106 98 - 107 mmol/L 08/17/2023 3:08 PM CDT [facility] CO2, VENOUS 18(L) 22 - 30 mmol/L 08/17/2023 3:08 PM CDT [facility] ANION GAP 12.0 <18.0 mmol/L 08/17/2023 3:08 PM CDT [facility] GLUCOSE 133(H) 70 - 99 mg/dL 08/17/2023 3:08 PM CDT [facility] BUN 35(H) 8 - 26 mg/dL 08/17/2023 3:08 PM CDT [facility] CREATININE, BLOOD 2.42(H) 0.70 - 1.30 mg/dL 08/17/2023 3:08 PM CDT [facility] BUN/CREATININE RATIO 14 12 - 20 ratio 08/17/2023 3:08 PM CDT [facility] TOTAL PROTEIN 7.0 6.3 - 8.2 g/dL 08/17/2023 3:08 PM CDT [facility] ALBUMIN 4.2 3.5 - 5.0 g/dL 08/17/2023 3:08 PM CDT [facility] A/G RATIO 1.5 1.0 - 2.2 08/17/2023 3:08 PM CDT [facility] CALCIUM 9.2 8.7 - 10.5 mg/dL 08/17/2023 3:08 PM CDT [facility] T BILI 0.6 0.2 - 1.2 mg/dL 08/17/2023 3:08 PM CDT [facility] SGOT (AST) 24 5 - 34 U/L 08/17/2023 3:08 PM T [facility] SGPT (ALT) 20 0 - 55 U/L 08/17/2023 3:08 PM CDT [facility] ALKALINE PHOSPHATASE 38(L) 40 - 150 U/L 08/17/2023 3:08 PM CDT [facility] GFR, ESTIMATED 29(L) >=60 08/17/2023 3:08 PM T [facility] Comment: Creatinine Clearance is the preferred criteria for selecting drug dose adjustments in renally impaired patients. The GFR is provided as additional pertinent clinical information. GFR is reported in mL/min/1.73 sq m. Calculation based on the Chronic Kidney Disease Epidemiology Collaboration (CKD- EPI) equation refit without adjustment for race. GFR, EST. 33(L) >=60 024 3:08 PM CDT [facility] GFR, EST. NONAFRICAN 27(L) >=60 08/17/2023 3:08 PM T [facility] Blood Venipuncture / Unknown 08/17/2023 2:47 PM CDT 08/17/2023 2:51 PM CDT us Dann Mancini MD CHEMISTRY ORDERABLES Celena Esparza [facility] [address] [place] [address], from Last 3 Months or Most Recently Relevant to Health Maintenance Insurance Advance Directives * Full Code (Latest Code Status on File) Date Activated Date Inactivated Comments 08/17/2023 10:05 PM 08/19/2023 12:54 PM CPR-Full T reatment: FULL ARREST: Attempt Resuscitation/CPR wit intubation and mechanical ventilation. PRE-ARREST: Use entire range of life support measures to stabilize the patient. Care Teams Dye Range Feeder Relationship Specialty Start Date End Date Anju Ignacio, SKATE MAKER, SOFT IRON INSPECTOR [address] [place] [address] PCP - General Advanced Practice Nurse 08/17/23
--- NOTE | 2024-05-27 14:02 | ED_ITS ---
HPI - General Adult General Chief complaint: Chest Pain Stated complaint: Right rib pain-ran into a wall playing pickleball Time Seen by Provider: 05/27/24 14:02 Source: patient Mode of arrival: ambulatory Limitations: no limitations History of Present Illness HPI narrative: Patient is a 63-year-old male who presents ED with report of right lateral chest wall pain. Patient reports he was playing pickle ball on Thursday morning when he tripped and fell into a wall. Hit his right-sided chest against the wall. Has been having pain in his right lateral chest since then. Worse with movement and deep breathing. Denies feeling short of breath. Denies any other injuries with the fall. Denies head injury or LOC. Has not taken anything for pain. Related Data Allergies Allergy/AdvReac Type Severity Reaction Status Date / Time Penicillins Allergy Intermediate Swelling Verified 05/27/24 13:57 Review of Systems Review of Systems: All systems reviewed & are unremarkable except as noted in HPI. All systems reviewed & are unremarkable except as noted in HPI and below Exam Narrative: GENERAL: Well appearing, obese with BMI of 30.6, non-toxic, in no acute distress. HEAD: Normocephalic, atraumatic. RESPIRATORY: Airway patent, respirations nonlabored. Clear to auscultation bilaterally, no rales, rhonchi, wheezing. Lung sounds are equal bilaterally. No focal rhonchi. CARDIOVASCULAR: Regular rate and rhythm without murmurs, rubs, or gallops. ABDOMINAL: Soft, no tenderness throughout abdomen, nondistended. Normoactive BS. MUSCULOSKELETAL: Moves all extremities. No gross deformities. Focal reproducible tenderness to palpation along right upper/lateral anterior chest wall, into axillary region. SKIN: Warm, dry, normal color. NEURO: A&O X3. Speech clear. Cranial nerves II-XII grossly intact. Steady gait. No ataxic movements. PSYCHIATRIC: Appropriate mood and affect. Normal interaction. Course Vital Signs Vital signs: Vital Signs Temperature 97.7 F 05/27/24 14:08 Pulse Rate 79 05/27/24 14:08 Respiratory Rate 16 05/27/24 14:08 Blood Pressure 182/76 H 05/27/24 14:08 Pulse Oximetry 96 05/27/24 14:08 Temperature 97.7 F 05/27/24 14:08 Pulse Rate 65 05/27/24 15:36 Respiratory Rate 12 05/27/24 15:36 Blood Pressure 174/75 H 05/27/24 15:36 Pulse Oximetry 100 05/27/24 15:36 Oxygen Delivery Room Air 05/27/24 14:39 Medical Decision Making MDM Narrative Medical decision making narrative: Chest CT with evidence of single nondisplaced rib fracture. No pneumothorax or other cardiopulmonary abnormality. Consistent with exam and injury. Patient with distinct focal reproducible chest wall tenderness in area of rib fracture, pain present with movement and deep inspiration. Vitals are stable. No tachycardia or hypoxia. Very low suspicion for PE, ACS. Patient will be discharged with pain medication. Educated on incentive spirometer use. Advised close follow-up with PCP for further evaluation and repeat imaging. Patient given strict return precautions. He agrees with plan. Discharged in stable condition. Medical Records Medical records reviewed: Yes I reviewed the external patient's medical records. Vital Signs Vital Signs: Vital Signs Temperature 97.7 F 05/27/24 14:08 Pulse Rate 79 05/27/24 14:08 Respiratory Rate 16 05/27/24 14:08 Blood Pressure 182/76 H 05/27/24 14:08 Pulse Oximetry 96 05/27/24 14:08 Temperature 97.7 F 05/27/24 14:08 Pulse Rate 65 05/27/24 15:36 Respiratory Rate 12 05/27/24 15:36 Blood Pressure 174/75 H 05/27/24 15:36 Pulse Oximetry 100 05/27/24 15:36 Oxygen Delivery Room Air 05/27/24 14:39 Imaging Data Attestation: I personally reviewed and interpreted this imaging study as follows: Radiologist's impression: ITS Impressions Chest CT 05/27/24 15:20 IMPRESSION: 1. Minimally displaced anterolateral right fifth rib fracture. No pneumothorax or other acute cardiopulmonary disease. 2. Small sliding-type hiatal hernia. Discharge Plan Discharge Clinical Impression: Fall from ground level Fracture of rib Qualifiers: Encounter type: initial encounter Rib fracture type: single rib Fracture type: closed Laterality: right Qualified Code(s): S22.31XA - Fracture of one rib, right side, initial encounter for closed fracture Patient Disposition: Home, Self-Care Condition: Stable Instructions: Antibiotic Form, Rib Fracture (ED), Chest Wall Pain (ED) Additional Instructions: You were diagnosed with a rib fracture. Utilize incentive spirometer several times throughout the day to encourage deep breathing. Utilize Tylenol as needed for pain. Fishtail as needed for more severe pain. Utilize lidocaine patches to area of pain. Follow-up with your primary care doctor for further evaluation and repeat imaging in the future. Return to the ED if you experience worsening or severe pain, recurrent injury, shortness of breath, unable to keep down food or drink, or any other symptoms of concern. Patient Language: Bangladeshi Prescriptions: New lidocaine 5 % adhesive patch,medicated 1 patch topical DAILY Qty: 15 0RF Rx Instructions: leave on most painful area for up to 12 hrs hydrocodone-acetaminophen 5-325 mg tablet 1 tablet PO Q6H PRN (Reason: pain) Qty: 10 0RF Follow-up/Referrals: Mamadou,Malorie Recinos DO [Primary Care Provider] - Time of Disposition: 15:39
[2024-05-27 14:08] VITALS: BP 182/76; PULSE 79; RESP 16; TEMP 36.5; O2SAT 96
[2024-05-27 14:47] VITALS: BP 208/85; PULSE 66; RESP 17; O2SAT 100
--- OUTSIDE RECORDS SUMMARY | 2024-05-27 15:05 | XMS_ITS | Continuity of Care Document ---
Author Organization [facility] Address [address] [place] [address] Phone Care Team Providers Care Subassemblies Wirer Name Role Phone Chuck Christine Unavailable Unavailable Advance Directives Directive Yes / No Effective Date File Name No Information Encounters Encounter Description Practice Location Reason(s) For Visit Diagnoses Date Provider Providers Copied on Encounter [facility], [address] [place], [place], [id number], [place] tel:[phone] [facility] No Information [address] , [address], [place], [address], [place]. tel:[phone] Family History Family Member Type Diagnosis Age At Onset No Information Payers Payer name Insurance type Covered libertarian ID Authoriza tion(s) No Information Social History Type Description Quantity Date Captured Comments Sex Male Smoking Status No Information Chief Complaint And Reason For Visit No Information Reason For Referral Reason For Referral No Information History Of Present Illness Encounter Date Complaint History Of Prese nt Illness No Information Functional Status Date Functional Assessmen t No Information Instructions Date Instruction Additional Infor mation No Information Assessments Type Assessment Date No Information Patient Care Teams Name Effective Dates (start - stop) Status Members No Information
--- OUTSIDE RECORDS SUMMARY | 2024-05-27 15:05 | XMS_ITS | Data Portability ---
Author Organization [place] - [facility], Jama Sinha Address [address] [place] [address] Assessment No assessment recorded. Plan of Treatment Reminders Order Date Submit Date Provider Last Modified By Organization Details Last Modified Time Details Appointments None recorded. Lab CMP, serum or plasma 2023 NESTOR [facility] ([place]), [address] [place], [address], 4 09:16:41 HbA1c (hemoglobin A1c), blood 2023 024 [facility] ([place]), [address] [place], [address], 4 09:16:43 lipid panel, serum 2023 [facility] ([place]), [address] [place], [address], 4 09:16:42 microalbumi n/creatinin e, mass ratio, urine 2023 024 [facility] ([place]), [address] [place], [address], 4 09:16:42 PSA, serum or plasma 2023 024 [facility]), [address] [place], [address], 4 09:16:43 albumin/cre atinine, mass ratio, urine 2022 023 NELSON [facility] ([place]), [address], [place], [address], 3 08:28:17 Referral cardiologis t referral - Thank you for helping us care for our patients.. 2023 024 [facility], [address], [place], [address], 4 10:12:12 physical therapist referral 2023 024 NELSON [facility], [address] [place] [address], [address], 4 13:23:50 Procedures None recorded. Surgeries None recorded. Imaging None recorded. Medication Orders amlodipine 10 mg tablet 2022 023 [facility], [address] [place] [address], [address], 3 10:36:38 chlorthalid one 25 mg tablet 2022 023 [facility], [address] [place] [address], [address], 3 10:36:40 losartan 100 mg tablet 2022 023 [facility], [address] [place] [address], [address], 3 10:36:43 diclofenac 1 % topical gel 2022 023 [facility], [address] [place] [address], [address], 3 10:36:39 tamsulosin 0.4 mg capsule 2022 023 [facility], [address] [place] [address], [address], 4 13:10:06 empaglifloz in 25 mg tablet 2022 023 [facility], [address] [place] [address], [address], 3 10:36:42 metformin 500 mg tablet 2022 023 [facility], [address] [place] [address], [address], 4 14:16:24 OneTouch Ultra Test strips 2022 023 [facility], [address] [place] [address], [address], 3 10:50:33 atorvastati n 40 mg tablet 2022 023 [facility], [address] [place] [address], [address], 3 10:36:38 Patient TargetsNo targets recorded. Patient Instructions Encounter Date Encounter Id Patient Instructions Last Modified By Organization Details Last Modified Time 06/04/2023 [id number] smoking cessatio n counseling, greater than 3 minutes up to 10 minutes* [email or web address] Not available 06/10/2023 13:36:20 Reason for Referral Physical Therapist Referral for Pain of right shoulder joint Referring Physician: Anju Ignacio, Family Medicine, Encounter Date: 06/04/2023 Deputy Juvenile Officer Referral for Ac kotlik myocardial infarction needs a local cardiologis and a 3rd stent placed Thank you for helping us care for our patients.. Referring Physician: Myah Arenas Family Medicine, Encounter Date: 08/25/2023 Results Created Date Observation Date Name Description Value Unit Range Abnormal Flag Note LastModifiedBy Organization Detail LastModifiedTime 01/09/2001/08/2023 lab resul t xr report xr report Not Available Not Available 04:26:11 01/14/20 23 01/13/2023 lab resul t xr report xr report Not Available Not Available 04:26:12 01/30/20 23 01/30/2023 ALBUM IN/CR EATIN INE RATIO ,URIN E creatinine, urine 70.4 mg/dL not estab. Not Available [facility] ([facility]) [address] [facility] [place], [address], 01/30/2023 08:28:17 01/30/20 23 01/30/2023 ALBUM IN/CR EATIN INE RATIO ,URIN E albumin, urine 10.4 ug/mL not estab. Not Available [facility] ([facility]) [address] [facility] [place], [address], 01/30/2023 08:28:17 01/30/20 23 01/30/2023 ALBUM IN/CR EATIN INE RATIO ,URIN E alb/creat ratio 15 mg/g_ creat 0-29 Debbie l: 0 - 29 Moder ately incre ased: 30 - 300 Sever alessia incre ased: >300 Not Available [facility] ([facility]) [address] [place], [address], 01/30/2023 08:28:17 06/04/19 24 06/05/2023 COMP. METAB OLIC PANEL (14) glucose 150 mg/dL 70-99 above high normal Not Available [facility] ([facility]) [address] [place], [address], 06/05/2023 09:16:41 06/04/19 24 06/05/2023 COMP. METAB OLIC PANEL (14) BUN 27 mg/dL 8-27 Not Available [facility] ([facility]) [address] [place], [address], 06/05/2023 09:16:41 06/04/19 24 06/05/2023 COMP. METAB OLIC PANEL (14) creatinine 1.39 mg/dL 0.76-1 .27 above high normal Not Available [facility] ([facility]) [address] [place], [address], 06/05/2023 09:16:41 06/04/19 24 06/05/2023 COMP. METAB OLIC PANEL (14) eGFR 57 mL/mi n/1.7 3 >59 below low normal Not Available [facility] ([facility]) [address], [place], [address], 06/05/2023 09:16:41 06/04/19 24 06/05/2023 COMP. METAB OLIC PANEL (14) BUN/creatini ne ratio 19 10-24 Not Available [facility] ([facility]) [address] [facility] [place], [address], 06/05/2023 09:16:41 06/04/19 24 06/05/2023 COMP. METAB OLIC PANEL (14) sodium 139 mmol/ L 134-14 4 Not Available [facility] ([facility]) [address], [place], [address], 06/05/2023 09:16:41 06/04/19 24 06/05/2023 COMP. METAB OLIC PANEL (14) potassium 4.4 mmol/ L 3.5-5. 2 Not Available [facility] ([facility]) [address] [facility] [place], [address], 06/05/2023 09:16:41 06/04/19 24 06/05/2023 COMP. METAB OLIC PANEL (14) chloride 102 mmol/ L 96-106 Not Available [facility] ([facility]) [address] [facility] [place], [address], 06/05/2023 09:16:41 06/04/19 24 06/05/2023 COMP. METAB OLIC PANEL (14) carbon dioxide, total 21 mmol/ L 20-29 Not Available [facility] ([facility]) [address] [facility] [place], [address], 06/05/2023 09:16:41 06/04/19 24 06/05/2023 COMP. METAB OLIC PANEL (14) calcium 9.2 mg/dL 8.6-10 .2 Not Available [facility] ([facility]) [address], [place], [address], 06/05/2023 09:16:41 06/04/19 24 06/05/2023 COMP. METAB OLIC PANEL (14) protein, total 7.0 g/dL 6.0-8. 5 Not Available [facility] ([facility]) [address], [place], [address], 06/05/2023 09:16:41 06/04/19 24 06/05/2023 COMP. METAB OLIC PANEL (14) albumin 4.4 g/dL 3.9-4. 9 Not Available [facility] ([facility]) [address], [place], [address], 06/05/2023 09:16:41 06/04/19 24 06/05/2023 COMP. METAB OLIC PANEL (14) globulin, total 2.6 g/dL 1.5-4. 5 Not Available [facility] ([facility]) [address], [place], [address], 06/05/2023 09:16:41 06/04/19 24 06/05/2023 COMP. METAB OLIC PANEL (14) A/G ratio 1.7 1.2-2. 2 Not Available [facility] ([facility]) [address], [place], [address], 06/05/2023 09:16:41 06/04/19 24 06/05/2023 COMP. METAB OLIC PANEL (14) bilirubin, total 0.2 mg/dL 0.0-1. 2 Not Available [facility] ([facility]) [address], [place], [address], 06/05/2023 09:16:41 06/04/19 24 06/05/2023 COMP. METAB OLIC PANEL (14) alkaline phosphatase 46 IU/L 44-121 Not Available [facility]) [address] [facility] [place], [address], 06/05/2023 09:16:41 06/04/19 24 06/05/2023 COMP. METAB OLIC PANEL (14) AST (SGOT) 17 IU/L 0-40 Not Available [facility] ([facility]) [address] [facility] [place], [address], 06/05/2023 09:16:41 06/04/19 24 06/05/2023 COMP. METAB OLIC PANEL (14) ALT (SGPT) 19 IU/L 0-44 Not Available [facility] ([facility]) [address] [facility] [place], [address], 06/05/2023 09:16:41 06/04/19 24 06/05/2023 LIPID PANEL cholesterol, total 149 mg/dL 100-19 9 Not Available [facility] ([facility]) [address] [facility] [place], [address], 06/05/2023 09:16:42 06/04/19 24 06/05/2023 LIPID PANEL triglyceride s 65 mg/dL 0-149 Not Available [facility] ([facility]) [address] [facility] [place], [address], 06/05/2023 09:16:42 06/04/19 24 06/05/2023 LIPID PANEL HDL cholesterol 36 mg/dL >39 below low normal Not Available [facility] ([facility]) [address] [facility] [place], [address], 06/05/2023 09:16:42 06/04/19 24 06/05/2023 LIPID PANEL VLDL cholesterol brown 13 mg/dL 5-40 Not Available [facility] ([facility]) [address] [place], [address], 06/05/2023 09:16:42 06/04/19 24 06/05/2023 LIPID PANEL LDL chol calc ([facility]) 100 mg/dL 0-99 above high normal Not Available [facility] ([facility]) [address] [place], [address], 06/05/2023 09:16:42 06/04/19 24 06/05/2023 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 Not Available [facility] ([facility]) [address] [place], [address], 06/05/2023 09:16:42 06/04/19 24 06/05/2023 ALBUM IN/CR EAT RATIO , RANDO M UR albumin, urine 16.2 ug/mL not estab. Not Available [facility] ([facility]) [address] [place], [address], 06/05/2023 09:16:42 06/04/19 24 06/05/2023 ALBUM IN/CR EAT RATIO , RANDO M UR alb/creat ratio 21 mg/g_ creat 0-29 Debbie l: 0 - 29 Moder ately incre ased: 30 - 300 Sever alessia incre ased: >300 Not Available [facility] ([facility]) [address] [place], [address], 06/05/2023 09:16:42 06/04/19 24 06/04/2023 PSA TOTAL (REFL EX TO FREE) reflex criteria Commen t The perce nt free PSA is perfo rmed on a refle x basis only when the total PSA is betwe en 4.0 and 10.0 ng/mL . Not Available [facility] ([facility]) [address] [place], [address], 06/05/2023 09:16:43 06/04/1906/05/2023 PSA TOTAL (REFL EX TO FREE) prostate specific Ag 1.2 NG/mL 0.0-4. 0 Russell ECLIA metho dolog y. Accor ding to the Ameri can Urolo gical Assoc iatio n, Serum PSA shoul d decre ase and remai n at undet ectab le level s after radic al prost atect deepali. The AUA defin es bioch emica l recur rence as an initi al PSA value 0.2 ng/mL or great er follo wed by a subse quent confi rmato ry PSA value 0.2 ng/mL or great er. Value s obtai bnony with diffe rent assay metho ds or kits canno t be used inter donohue eably . Resul ts canno t be inter prete d as absol kotlik evide nce of the prese nce or absen ce of daniel ramírez se. Not Available [facility] ([facility]) [address], [place], [address], 06/05/2023 09:16:43 06/04/1906/05/2023 HEMOG LOBIN A1C hemoglobin A1C 7.5 % 4.8-5. 6 above high normal Predi abete s: 5.7 - 6.4 Diabe deisy: >6.4 Glyce ursula contr ol for adult s with diabe deisy: <7.0 Not Available [facility] ([facility]) [address] [facility] [address], [place], [address], 06/05/2023 09:16:43 10/29/1909/16/2023 lab* No observ ation record ed. [id number] [facility] [address], [place], [address], 10/29/2023 18:03:15 Result Notes None recorded. Problems Name Problem SNOMED Code Status Onset Date Resolution Date Notes Provider Name and Address Organization Details Recorded Time Depressiv e disorder 24343326 Active 2022 Anju Ignacio NP [address], [place], [address] , [place] - [facility] 3 18:21:53 Diabetes mellitus 16802550 Active 2022 Anju Ignacio NP [address], [place], [address] , [place] - [facility] 3 18:22:03 Hyperlipi demia 94445890 Active 2022 LDL 99 7 at cards office Myah Arenas MD [address], [place], [address] , [place] - [facility] 4 18:02:08 Hypertens stephanie disorder 32391568 Active 2022 Anju Ignacio NP [address], [place], [address] , [place] - [facility] 3 18:22:16 Smoker 39951679 Active 2022 Anju Ignacio NP [address], [place], [address] , [place] - [facility] 3 10:11:07 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 Anju Ignacio NP [address], [place], [address] , [place] - [facility] 3 10:12:21 Pain of right knee joint 910964939373 100 Active 2022 Anju Ignacio NP [address], [place], [address] , [place] - [facility] 3 10:34:22 Tobacco user 236437853 Active 2021 Tobacco user; PROBABIL ITY: 0 Confir mation: Probable Annotat edDispla y: Tobacco user Cla ssificat ion: Medical Lifecycl eDateTim e: 17:00:00 +00:00 Not Available [facility] 4 18:35:40 Acute myocardia l infarctio n 14956738 Active 2023 Danae Mei NP [address], [place], [address] , [place] [facility] 4 14:39:56 Problem Notes None recorded. Procedures Surgical History Date Name Laterality Status Provider Name and Address Organization Details Recorded Time 4 insertion of stent into vein completed Mariluz [place] [facility] 08/25/2023 13:19:09 4 colonoscopy completed Anju Ignacio NP [address], [place], [place], [address] [place] [address], [facility] 01/26/2023 18:25:21 4 surgical reduction of torsion of testis completed Anju Ignacio NP [address], [place] [address], [facility] 01/26/2023 18:25:39 3 Amputation of finger/thumb completed Anju Ignacio NP [address] [place] [address], [facility] 01/26/2023 18:26:50 extraction of cataract completed Anju Ignacio NP [address] [place] [address], [facility] 01/26/2023 18:24:28 amputation of thumb completed Anju Ignacio NP [address] [address], [facility] 01/26/2023 18:26:28 Imaging Results Imaging Date Name Status LastModified by Organizatio n Details LastModified Time 09/16/2023 lab* completed [facility] [address], [place], [address], 10/29/2023 18:03:15 Procedure Notes None recorded. Medical Equipment None Reported. Allergies Allergen ID Allergen Name Allergen Category Reaction Reaction Severity Criticality Documentation Date Start Date Code Code System Note Provider Name and Address Organization Details Recorded Time 434682 Product containin g penicilli n (product) medicatio n swelling Not available Not available 01/29/2023 94356 [id number] [place], [place] [facility] 3 10:11:08 [id number] Penicilli n Not available Not available Not available Not available 06/11/2023 86594 RxNorm Comme nt: React ion Class : Aller gy; Not Available [facility] 4 18:48:30 Medications Name Sig Start Date Stop Date Status Note LastModified by Organization Details LastModified Time losartan 50 mg tablet 10/22 completed StopType : Hard Stop Helio mckenzieN umber: [id number] T Bobo lls: 1 Barbra Gardner tor: Yes CSAS chedule: 0 active _status_ dt_tm: 11:47:58 AM Not Available Not Available Not Available atorvasta tin 40 mg tablet Take 1 tablet every day by oral route. 2022 active Not Available Not Available Not Avai lable metformin 500 mg tablet Take 2 tablets twice a day by oral route. 08/24 completed Not Available Not Available Not Available sildenafi l 50 mg tablet 1-2 tab Oral daily,LA N:as needed for erectile dysfunct ion 11/05 completed PRNInstr uctions: as needed for erectile dysfunct ion Stop Type: Physicia n Stop Helio mckenzieN umber: [id number] S cheduled PRN: Yes Tota lRefills : 1 Barbra Gardner tor: No CSASc hedule: 0 active _status_ dt_tm: 04/30/2021 8:48:08 AM Not Available Not Available Not Available atorvasta tin 10 mg tablet 08/08 completed StopType : Hard Stop Helio mckenzieN umber: [id number] T Bobo lls: 3 Barbra Gardner tor: Yes CSAS chedule: 0 active _status_ dt_tm: 02/05/20 8:30:51 AM Not Available Not Available Not Available clopidogr el 75 mg tablet TAKE 1 TABLET BY MOUTH DAILY active Not Available Not Available No t Available chlorthal idone 25 mg tablet Take 1 tablet every day by oral route. 2022 active Not Available Not Available Not Avai lable lancets Check blood sugar 2 times a weeks and as needed with meter. 2022 active StopType : Soft Stop Tot alRefill s: 3 Barbra Gardner tor: Yes acti ve_statu s_dt_tm: 3 11:57:31 AM Not Available Not Available Not Available tamsulosi n 0.4 mg capsule TAKE 1 CAPSULE BY MOUTH EVERY DAY AT BEDTIME. 2023 active Not Available Not Available Not Avai lable OneTouch Ultra Test strips USE 1 NEW TEST STRIP EACH TIME TO TEST BLOOD SUGARS 5 TIMES PER WEEK 2023 active Not Available Not Available Not Avai lable amitripty line 10 mg tablet 1 tab(s) Oral hs 11/05 completed StopType : Physicia n Stop [id number] S cheduled PRN: No Total Refills: 3 Consta ntIndica tor: Yes CSAS chedule: 0 active _status_ dt_tm: 8:51:11 AM Not Available Not Available Not Available amlodipin e 10 mg tablet Take 1 tablet every day by oral route. 2022 active Not Available Not Available Not Avai lable pantopraz ole 40 mg tablet,de layed release TAKE 1 TABLET BY MOUTH EVERY MORNING BEFORE BREAKFAS T active Not Available Not Available No t Available fluoxetin e 20 mg tablet Take 1 tablet every day by oral route. 01/26 completed Not Available Not Available Not Available metformin 1,000 mg tablet TAKE 1 TABLET BY MOUTH TWICE A DAY 2023 active Not Available Not Available Not Avai lable ibuprofen 600 mg tablet 1 tab(s) Oral tid,PRN: as needed for pain,Ins tr:Take with food or milk 02/04 completed PRNInstr uctions: as needed for pain Sto pType: Physicia n Stop Helio [facility] [id number] S cheduled PRN: Yes Tota lRefills : 2 Consta ntIndica tor: No CSASc hedule: 0 active _status_ dt_tm: 11:43:49 AM Not Available Not Available Not Available losartan 100 mg tablet Take 1 tablet every day by oral route. 2022 active Not Available Not Available Not Avai lable fluoxetin e 20 mg capsule 2 cap(s) Oral daily 08/24 completed Not Available Not Available Not Available atorvasta tin 10/18 completed Disconti nueDate: 11:45:00 AM Disco ntinueTy pe: User Manual DC StopT ype: Physicia n Stop Helio gIdentif icationN umber: [id number] T otalRefi lls: 0 Consta ntIndica tor: Yes CSAS chedule: 0 active _status_ dt_tm: 11:13:23 AM Not Available Not Available Not Available chlorthal idone 10/18 completed Disconti nueDate: 11:45:00 AM Disco ntinueTy pe: User Manual DC StopT ype: Physicia n Stop Helio gIdentif icationN umber: [id number] T otalRefi lls: 0 Consta ntIndica tor: Yes CSAS chedule: 0 active _status_ dt_tm: 11:13:23 AM Not Available Not Available Not Available losartan 10/18 completed Disconti nueDate: 11:45:00 AM Disco ntinueTy pe: User Manual DC StopT ype: Physicia n Stop Helio gIdentif icationN umber: [id number] T otalRefi lls: 0 Consta ntIndica tor: Yes CSAS chedule: 0 active _status_ dt_tm: 11:13:23 AM Not Available Not Available Not Available metformin 10/18 completed Disconti nueDate: 11:46:00 AM Disco ntinueTy pe: User Manual DC StopT ype: Physicia n Stop Helio gIdentif icationN umber: [id number] T otalRefi lls: 0 Consta ntIndica tor: Yes CSAS chedule: 0 active _status_ dt_tm: 11:13:23 AM Not Available Not Available Not Available diclofena c 1 % topical gel APPLY 2 GRAMS TO THE AFFECTED AREA(S) BY TOPICAL ROUTE 2 TIMES PER DAY as needed for pain 2022 active Not Available Not Available Not Avai lable Budeprion XL 150 mg 24 hr tablet, extended release 1 tab(s) Oral daily 07/03 completed Disconti nueDate: 2 8:13:00 AM Disco ntinueTy pe: User Manual DC StopT ype: Physicia n Stop Helio gIdentif icationN umber: [id number] S cheduled PRN: No Total Refills: 1 Consta ntIndica tor: Yes CSAS chedule: 0 active _status_ dt_tm: 2 10:51:09 AM Not Available Not Available Not Available empaglifl ozin 25 mg tablet Take 1 tablet every day by oral route. 2022 active Not Available Not Available Not Avai lable Jardiance 10 mg tablet 02/07 completed StopType : Hard Stop Helio Peñadentif icationN umber: [id number] T otalRefi lls: 3 Consta ntIndica tor: Yes CSAS chedule: 0 active _status_ dt_tm: 02/05/20 8:30:51 AM Not Available Not Available Not Available Shingrix (PF) 12/03 completed StopType : Physicia n Stop Helio gIdentif icationN umber: [id number] N extDoseD ate: 12/04/19 8:34:00 AM Const antIndic ator: No CSASc hedule: 0 active _status_ dt_tm: 12/04/19 23 8:34:41 AM Not Available Not Available Not Available OneTouch Ultra2 Meter Check blood sugar 2x weekly and as needed 2022 active StopType : Soft Stop Tot alRefill s: 0 Consta ntIndica tor: Yes acti ve_statu s_dt_tm: 3 11:57:31 AM Not Available Not Available Not Available Vitals Date Recorded Body height Body mass index (BMI) Body weight Heart rate Body temperature Oxygen saturation Oxygen saturation in Arterial blood by Pulse oximetry Respiratory rate Systolic blood pressure Diastolic blood pressure Provider Name and Address Organization Details Last Updated DateTime 3 167.64 cm 31.7 kg/m2 40839.2 6 g 66 /min 97.6 [degF] 98 % 98 % 16 /min 119 mm[Hg] 66 mm[Hg] CHANTELLE Valdez [place] [facility] 3 10:16:54 Date Recorded Body height Body mass index (BMI) Body weight Body temperature Oxygen saturation Oxygen saturation in Arterial blood by Pulse oximetry Heart rate Systolic blood pressure Diastolic blood pressure Provider Name and Address Organization Details Last Updated DateTime 4 167.64 cm 31.2 kg/m2 80657.3 3 g 98.1 [degF] 96 % 96 % 80 /min 132 mm[Hg] 74 mm[Hg] Mariluz [place] [facility] 4 09:08:12 Date Recorded Body height Body mass index (BMI) Body weight Body temperature Oxygen saturation Oxygen saturation in Arterial blood by Pulse oximetry Heart rate Systolic blood pressure Diastolic blood pressure Provider Name and Address Organization Details Last Updated DateTime 4 167.64 cm 30 kg/m2 29543.1 8 g 98.7 [degF] 98 % 98 % 72 /min 124 mm[Hg] 68 mm[Hg] Mariluz [place] [facility] 4 13:15:13 Social History Question Answer Notes LastModified by Organization D etails LastModified Time In The 14 Days Before Symptom Onset, Have You Had Close Contact With A Laboratory-confir med COVID-19 While That Case Was Ill? No Information not available 06/04/2023 Have You Been To An Area Known To Be High Risk For COVID-19? No [email or web address] Information not available 06/04/2023 Sex: Unknown Functional Status None recorded. Mental Status None recorded. Family History Relationship Description Onset Age of this Age Resolved Age Notes LastModified by Organization Details LastModified Time Father Malignant neoplastic disease [email or web address] Not available 2022 18:23:38 Father Heart disease [email or web address] Not available 2022 18:23:47 Mother Malignant neoplastic disease [email or web address] Not available 2022 18:23:38 Notes:Father: Cancer, Heart disease Mother: Cancer Medical History No medical history recorded. Immunizations Vaccine Type Date Status Note Provider Nam e and Address Organization Details Recorded Time zoster, unspecified formulation 3 completed Not Available [facility] 06/11/2023 18:22:08 influenza, unspecified formulation 2 completed Not Available [facility] 06/11/2023 18:22:08 influenza, unspecified formulation 3 completed Not Available [facility] 06/11/2023 18:22:08 influenza, unspecified formulation 1 completed Not Available [facility] 06/11/2023 18:22:08 zoster recombinant 4 completed [place], [place] - [facility] 06/04/2023 10:09:44 Past Encounters Encounter ID Performer Location Encounter Start Date Encounter Closed Date Diagnosis/Indication Diagnosis SNOMED-CT Code Diagnosis ICD10 Code Diagnosis Note [id number] CHARBEL Chauhan s [address] [place] [address] 01/29/2023 10:01:36 01/29/2023 16:50:38 Hypertensive disorder 46390375 I10 Diabetes mellitus 722429 09 E11.9 Hyperlipidemia 46551994 E78.5 Depressive disorder 3548 9007 F32.A Smoker 35133208 F17.200 Induration penis plastica 4744545 N48.6 Pain of ri ght knee joint [id number] 41500 M25.220 [id number] CHARBEL Chauhan s [address] [place] [address] 06/04/2023 09:02:33 06/12/2023 06:31:29 Adult health examination 020216480 Z00.00 Briefly discussed healthy diet and regular exercise.E ncouraged to be tobacco free.Encou raged to avoid binge drinking or more than 2 drinks per day. Annual eye exam and biannual dental cleanings recommende d. Discussed recommende d vaccines and screenings per HPI. RTC 3 months for transition of care visit. Diabetes mellitus 657743 09 E11.9 Labs today and will adjust meds as needed. Smoker 49763630 F17.[address] Chest due December Benign pro static hyperplasia 388893478 N40.1 Flomax not showing benefit. Discontinu e. Pain of ri ght shoulder joint [id number] 6281118 M25.511 Pain after throwing softball - has pain with pickleball .PT to eval and treat. Hypertensive disorder 38 184535 I10 Acceptable control. Continue to monitor in light of occasional dizziness. Encouraged good hydration. [id number] Myah Arenas MD [address] [place] [address] 08/25/2023 13:09:12 08/26/2023 08:41:52 Acute myocardial infarction 09162752 I21.9 reviewed with pt where his current stents are on image of coronary arteries/h eart online2 stents in RCA , future stent to be placed in circumflex advised pt to continue with routine activity but would hold off on exertional exercise until he sees cardiologi st again as 3rd stent was advised to be placed in 2-4 weeks referral placed for consultati on with [facility] cardiology --somewhat time constraine d as he does not have new PCP but changing to new insurance September 24, 2023 Essential hypertension 94880430 I10 well controlled on meds, continue as is , last labs done as hospitaliz ation last weekALL MEDS RECONCILED BY ME TODAY Preventive procedure 169 996353 Z29.89 d/w patient that he is on PPI likely due to being on two blood thinners and he may discuss with cardiology when he can stop as he does not want to be on this if not necessary ---PPI was started at his recent hospitaliz ation for NSTEMI Health Concerns Section Related Observation LastModified by Organization Detai ls LastModified Time None Recorded Concern Status LastModified by Organization Details LastModified Time None Recorded Advance Directives Directive None Recorded Payers Encounter Date Sequence Insurance Name Policy Number Policy Mccabe Covered Member ID Mccabe Member ID Guarantor Name 01/29/2023 1 [facility] [id number] Gregorio Gaitan [id number] Gregorio Gaitan 06/04/2023 1 [facility] [id number] Gregorio Polburak [id number] Gregorio Polburak 08/25/2023 1 [facility] [id number] Gregorio Gaitan [id number] Gregorio Gaitan Notes Date Note Type Note Provider Name and Address Organization Details Recorded Time 01/29/2023 text/html Had seen [facility] last year - had used a needle/injection for erections - got bruised and now has curvature to penis. The clinic offered to fix this for $5,000 with a wave therapy. No frequency or dysuria. Referred to urology. Started on tadalafil. Depression and anxiety: self discontinued fluoxetine. Feels like he is doing well.DM on metformin and januvia: Labs show persistent microalbuminuria: already on losartan, empaglifiozin. A1C is decent at 6.7.(DIltiazem is shown to be more effective a reducing microalbuminuria than amlodipine so will consider switching in a few weeks. )Gets a little dizzy if blood pressure gets under 120 or after a work out. Feels better after drinking/snack.Switche d to lower carb bread and beer.Home glucoses: 7 [place] [address]: [address]: [address] day [address]: 147HTN with CKD 2-3: on amlodipine, chlorthalidone and losartan (microalbuminuria).EKG done 12/2020.137/81, 147, 84, 127/86, 115/97, 131/77, 149/89, 118/74 HLD on atorvastatin 40mg daily. Smoker: 45+ pack year history. Quit 01/2021 but restarted 09/2021; now has 1-2 cigs per day.CT Chest normal 12/2022. Repeat in 12 months. Seeing [facility] for lesions that so far are benign. Anju Ignacio NP [address], [facility] [place], [address], [place] - [facility] 01/29/2023 16:50:50 06/04/2023 text/html Right shoulder p ain with certain degrees of ROM.Hurt when throwing a softball in February.Playing pickleball 2-3 weekly. Had seen [facility] last year - had used a needle/injection for erections - got bruised and now has curvature to penis. The clinic offered to fix this for $5,000 with a wave therapy. No frequency or dysuria. Referred to urology. Started on tadalafil. Started flomax-no change in LUTS. Depression and anxiety: self discontinued fluoxetine. Feels like he is doing well.DM on metformin and januvia: Labs show persistent microalbuminuria: already on losartan, empaglifiozin. A1C is decent at 6.7.(DIltiazem is shown to be more effective a reducing microalbuminuria than amlodipine so will consider switching in a few weeks. )Switched to lower carb bread and beer.Home glucoses: 7 day ave: [address] day [address]: [address] day [address]: 147HTN with CKD 2-3: on amlodipine, chlorthalidone and losartan (microalbuminuria).Get s a little dizzy if blood pressure gets under 120 or after a work out. Feels better after drinking/snack. Did not eat much with Lent so BP ran lower. Noted elevated BP at [place] with junk food.EKG done 12/2020.Home BP runs 130-140s/80 at homeHLD on atorvastatin 40mg daily.Smoker: 45+ pack year history. Quit 01/2021 but restarted 09/2021; now has 3 cigs per day.CT Chest normal 12/2022. Repeat in 12 months.Seeing [facility] for lesions that so far are benign. Diet: Unrestricted, watches sugar but it's hard Exercise: pickleball, walksSleep: nocturia 1-3 x per night.Caffeine: 2 cups of coffeeTobacco: 1ppd x 45 years, now down to 3 cigs per dayAlcohol: 3-4 beers most daysLives at home with: self, widowedSafe at homeEmployment: retired Anxiety or depression: I'm Okay , better when he stays social Dental Care: cleanings q 6 monthsVision Care: recently, has new glasses. ImmunizationsFlu shot: 12/03/2022Tdap: 2017?Pneumonia: Eligible as a smoker - declines but will considerShringrix: will complete series today.COVID: Primary series completed Recommended ScreeningsPSA: previously < 1Colonoscopy: due 4560-5645, normal 9 years agoLung cancer screen ( age > 50 & 20 pack yr hx): due December 2023HCV Screen: negative 09/2020 Anju Ignacio NP [address], [place], [address], [place] - [facility] 06/04/2023 09:59:42 08/25/2023 text/html seen last week i n ED and [facility] [place] [facility] Dept[facility] List as of . Acute Kidney injury creat 1.22 , 1.432. Acute non ST elevation myocardial infarction (INSTEM) (HCC)3. Sinus Bradycardia BMP creat 1.43---> 1.22, UA 3 + glucose CBC nl plt 162 Summary of hospital course:Gregorio Gaitan was admitted on 08/17/2023 . Please see H and P for details on admission.Gregorio Gaitan was admitted with dizziness, and fatigue. 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 His workup revealed sinus bradycardia and elevated troponin. Cardiology was involved. Underwent cardiac catheterization with successful PCI with 2 RADHA to RCA with scheduled outpatient PCI to circumflex in 2-4 weeks. Patient was placed on DA PT and high-dose statin.NSTEMI-status post cardiac catheterization with successful PCI with 2 RADHA to RCA. PCI to circumflex in 2-4 weeks in the outpatient setting. Aspirin/Plavix/high-do se statin.Type 2 DM-Jardiance 25 mg/metformin 1000 mg daily.HTN-Norvasc 10 mg/chlorthalidone 25 mg/losartan 100 mg. Blood pressure was low at the time of the discharge. Patient was advised to hold off his blood pressure medication until he sees his primary and measure his blood pressure every day, if it goes above 140 contact primary care physician's office. Patient voiced understanding.CAMERON on CKD stage IIIB-creatinine is trending down with CR level of 1.3.BPH-tamsulosinHLD- Lipitor 40 mg. Pt states he had 2 stents , needs another placed in 2-4 weeks but never received call from anyoneappears he was referred cannot say where but was referred to cardiac rehab in [place], again he prefers to do all his cardiac care at [place], [place] chest pain ? no, never had any , went to ED for low BP and feeling off and low, discovered to have NSTEMI---transferred to another hosp--got cath and stents x2 See DELMI Arenas MD [address], [place], [address], [place] - [facility] 08/25/2023 15:05:25
--- OUTSIDE RECORDS SUMMARY | 2024-05-27 15:06 | XMS_ITS | Encounter Summary ---
Author Organization [facility] Healthcare Address [address] [place] [address] Care Team Providers Care Business Analytics Faculty Member Name Role Phone Brandon De Paz MD Unavailable [phone] Malorie Cedillo DO Primary Care Provider [phone] Encounter Details Date Type Department Care Team (Late st Contact Info) Description 04/25/2024 Results Follow-Up [facility] Nephrology at [address] [place] [address] David Moya MD [address] [place] [address] [address] [place] [address] Social History Tobacco Use Types [...] on file 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 Gender Identity Not on file Sexual Orientation Not on file documented as of this encounter Plan of Treatment Upcoming Encounters Date Type Department Care Team (Late st Contact Info) Description 09/29/2024 7:30 AM CDT Hospital Encounter [facility] [address] [place] [address] Jason Reis MD [address] [place] [address] 09/29/2024 7:30 AM CDT - 09/29/2024 7:45 AM CDT Surgery [facility] [address] [place] [id number] Jason Reis MD [address] [place] [address] COLONOSCOPY Scheduled Procedures Name Priority Associated Diagnoses Date/Ti me COLONOSCOPY History of colon polyps 09/29/2024 7:30 AM CDT documented as of this encounter Visit Diagnoses Not on filedocumented in this encounter Care Teams Business Analytics Faculty Member Relationship Specialty Start Date End Date Malorie Cedillo DO [address] [place] [address] PCP - General Family Medicine 12/10/23 Brandon De Paz MD [address] [address] Consulting Physician Cardiology 11/20/23 documented as of this encounter
--- OUTSIDE RECORDS SUMMARY | 2024-05-27 15:06 | XMS_ITS | Clinical Summary ---
Author Organization [facility] Address [facility] [place] [address] Care Team Providers Care Mash Grinder Name Role Phone Unavailable Primary Care Provider [...]
--- OUTSIDE RECORDS SUMMARY | 2024-05-27 15:06 | XMS_ITS | Referral Summary ---
Author Organization [facility] Address [address] [place] [address] Care Team Providers Care Usability Architect Name Role Phone Brandon De Paz MD Unavailable [phone] Malorie Cedillo DO Primary Care Provider [phone] Encounters Date Type Department Care Team Description 04/25/2024 Results Follow-Up [facility] Nephrology at [address] [phone] David Moya MD 04/20/2024 12:25 PM DATE PITTER - 04/20/2024 11:59 PM DATE PITTER Hospital Encounter [address] [address] CKD stage 3a, GFR 45-59 ml/min (HCC) Discharge Disposition: Discharge to home or self care 04/12/2024 10:00 AM DATE PITTER Office Visit [facility] Nephrology at [address] [phone] David Moya MD CKD stage 3a, GFR 45-59 ml/min (HCC) (Primary Dx); Hypertension associated with diabetes (HCC); Coronary artery disease involving hoonah coronary artery of hoonah heart without angina pectoris; Proteinuria, unspecified type; Essential hypertension; Type 2 diabetes mellitus with stage 3a chronic kidney disease, without long-term current use of insulin (HCC) 04/01/2024 Orders Only [facility] Gastroenterology at [address] [place] [address] Jason Reis MD History of colon polyps (Primary Dx) 03/30/2024 8:15 AM DATE PITTER Anesthesia Event [facility] [address] [place] [address] Jeff Hernandez MD 03/30/2024 8:00 AM DATE PITTER - 03/30/2024 8:30 AM DATE PITTER Surgery [facility] [address] [place] [address] Jason Reis MD COLON REMOVAL SNARE 03/30/2024 6:48 AM DATE PITTER - 03/30/2024 9:51 AM DATE PITTER Hospital Encounter [facility] [address] [place] [address] Jason Reis MD Hx of colonic polyp Discharge Disposition: Discharge to home or self care 03/24/2024 2:24 PM DATE PITTER - 03/24/2024 11:59 PM DATE PITTER Hospital Encounter [facility] [address] [place] [address] Cigarette nicotine dependence in remission; Screening for AAA (abdominal aortic aneurysm); Personal history of tobacco use, presenting hazards to health Discharge Disposition: Discharge to home or self care 03/09/2024 Telephone [facility] Family Medicine at [facility] [address] [place] [phone] Malorie Cedillo, DO Med Refill 03/01/2024 Telephone [facility] Family Medicine at [facility] [address] [place] [phone] Malorie Cedillo, DO Med Refill from Last 3 Months Allergies Active Allergy Reactions Criticality Noted Date Comments Reading Nausea only Low 11/19/2023 Penicillins Hives,Swelling,Urticaria Medium 10/02/2013 Medications aspirin 81 mg enteric coated tablet Take 1 tablet (81 mg total) by mouth daily Active empagliflozin (JARDIANCE) 25 mg tabletIndicatio ns:type 2 diabetes mellitus Take 1 tablet (25 mg total) by mouth daily 90 tablet 1 12/09/20 25 Active tadalafiL (CIALIS) 5 mg tabletIndicatio ns:Erectile dysfunction associated with type 2 diabetes mellitus ([facility]) Take 1 tablet (5 mg total) by mouth daily 30 tablet 2 5 Active amLODIPine (NORVASC) 10 mg tabletIndicatio ns:Hypertension associated with diabetes ([facility]) TAKE 1 TABLET(10 MG) BY MOUTH EVERY NIGHT 90 tablet 1 5 Active losartan (COZAAR) 100 mg tabletIndicatio ns:Hypertension associated with diabetes ([facility]),Type 2 diabetes mellitus without complication, without long-term current use of insulin ([facility]) TAKE 1 TABLET(100 MG) BY MOUTH DAILY 90 tablet 1 5 Active tamsulosin (FLOMAX) 0.4 mg extended release capsuleIndicati ons:Benign prostatic hyperplasia without lower urinary tract symptoms TAKE 1 CAPSULE(0. 4 MG) BY MOUTH DAILY 100 capsule 5 Active metFORMIN (GLUCOPHAGE) 1,000 mg tabletIndicatio ns:Type 2 diabetes mellitus without complication, without long-term current use of insulin ([facility]) TAKE 1 TABLET(100 0 MG) BY MOUTH TWICE DAILY WITH MEALS 180 tablet 1 5 Active atorvastatin (LIPITOR) 40 mg tabletIndicatio ns:Type 2 diabetes mellitus without complication, without long-term current use of insulin ([facility]),Hyperlipi demia associated with type 2 diabetes mellitus ([facility]),Presence of stent in coronary artery in [...] adult 12/10/2023 Coronary artery disease invo lving hoonah coronary artery of hoonah heart without angina pectoris 12/10/2023 Benign prostatic [...] on file Legal Sex Male 9:43 PM DATE PITTER Gender Identity Not on file Sexual Orientation Not on file Last Filed Vital Signs Vital Sign Reading Time Taken Comments Blood Pressure 126/77 04/12/2024 9:49 AM DATE PITTER Pulse 62 04/12/2024 9:49 AM DATE PITTER Temperature 36.4 C (97.5 F) 04/12/2024 9:49 AM DATE PITTER Respiratory Rate 15 03/30/2024 9:30 AM DATE PITTER Oxygen Saturation 99% 03/30/2024 9:30 AM DATE PITTER Inhaled Oxygen Concentration - - Weight 86.2 kg (190 lb) 04/12/2024 9:49 AM DATE PITTER Height 170.2 cm (5' 7 ) 04/12/2024 9:49 AM DATE PITTER Body Mass Index 29.76 04/12/2024 9:49 AM DATE PITTER Plan of Treatment Upcoming Encounters Date Type Department Care Team (Late st Contact Info) Description 09/29/2024 7:30 AM CDT Hospital Encounter [facility] [address] [place] [address] Jason Reis MD [address] [place] [address] [address] MENDEZ [address] [place] [address] 09/29/2024 7:30 AM CDT - 09/29/2024 7:45 AM CDT Surgery [facility] [address] [place] [address] Jason Reis MD [facility] [address] MENDEZ [address] [place] [phone] COLONOSCOPY Scheduled Procedures Name Priority Associated Diagnoses Date/Ti me COLONOSCOPY History of colon polyps 09/29/2024 7:30 AM CDT Medical Devices Implanted Type Area Ic Designer Custom Device Identifier Shelf Expiration Date Model / Serial / Lot [employer] Angio-Seal Vip Bondek-Plus 8fr .038in 70cm Hemostatic Latex Free [id number] - [id number] - [id number] Implanted:Qty : 1 on 11/19/2023 by Vipul Olvera MD PhD at [facility] Collagen N/A: Common Femoral Artery [employer] Cyn[employer] 06/15/2024 [id number] / [id number] / [id number] Medtronic Card Vasc Surgery 2.50 X 26mm Landen Callahan Rx Coronary Stent [id number] - [id number] - [id number] Implanted:Qty : 1 on 11/19/2023 by Vipul Olvera MD PhD at [facility] Stent N/A: Circumflex Coronary Artery Medtronic Card Vasc Surgery 05/18/2026 [id number] / [id number] / [id number] Procedures Procedure Name Priority Date/Time Associated Diagnosis Comments US KIDNEY COMPLETE Schedule Routine, Read Routine (OP Routine) 04/20/2024 1:23 PM DATE PITTER CKD stage 3a, GFR 45-59 ml/min (HCC) SURGICAL PATHOLOGY Routine 03/30/2024 8: 42 AM DATE PITTER Hx of colonic polyp COLON REMOVAL SNARE 03/30/2024 8 :18 AM DATE PITTER Hx of colonic polyp COLONOSCOPY 03/30/2024 8:09 AM DATE PITTER POCT GLUCOSE DEVICE Routine 03/30/2024 7 :25 AM DATE PITTER ABDOMINAL AORTIC ANEURYSM SCREENING Schedule Routine, Read Routine (OP Routine) 03/24/2024 3:25 PM DATE PITTER Cigarette nicotine dependence in remission Screening for AAA (abdominal aortic aneurysm) Personal history of tobacco use, presenting hazards to health CT LUNG CANCER SCREENING Schedule Routine, Read Routine (OP Routine) 01/12/2024 4:12 PM DATE PITTER Cigarette nicotine dependence in remission Personal history [...] 9:16 AM CDT Acute myocardial infarction, unspecified NH type, unspecified artery (HCC) from Last 3 Months or Most Recently Relevant to Health Maintenance Results * US Kidney Complete (04/20/2024 1:23 PM DATE PITTER) Anatomical Region Laterality Modality Kidney N/A Ultrasound 04/24/2024 9:56 AM DATE PITTER Narrative 04/24/2024 9:57 AM DATE PITTER EXAM DESCRIPTION: US KIDNEY COMPLETE REASON FOR [...] by David Baker M.D. T: Report ID: [id number] Reading Location: [place] [address] Procedure Note David Baker Jr., MD - [...] by David Baker M.D. T: Report ID: [id number] Reading Location: [place] [address] us David Moya MD IM US PROCEDURES Final Result * Surgical pathology (03/30/2024 8:42 AM DATE PITTER) Tissue specimen (specimen) (Polyp(s), colon/colorectal, esophageal, gastric) 03/30/2024 8:42 AM DATE PITTER Narrative PATHOLOGY [facility] - 03/31/2024 2:15 PM DATE PITTER [facility] Department of Pathology [address] [place] [address] Note to Patients: This report may contain [...] : 1960 (Age: 63) Gender: M Address: [address] [place] [address] Hospital #: [id number] Service: Gastro Location: Patient Type: [facility] OUTPATIENT Taken: 03/30/2024 Received: 03/30/2024 Accessioned: 03/30/2024 [...] bisected). Entirely submitted. Labeled A1. Jar 0. [facility]/03/30/2024 13:58 DOLLY Burgos, PA (ASCP) Microscopic slide review and interpretation for this case was performed at [facility], Department of Surgical Pathology, [address] [facility], [place] [id number], [place] [id number] CLIA # [id number] us Jason Reis MD LAB PATHOLOGY ORDERABLES Final R esult PATHOLOGY [facility] * Colonoscopy (03/30/2024 8:09 AM DATE PITTER) Anatomical Region Laterality Modality Other Narrative Procedure Note Jason Reis MD - 03/30/2024 8:09 AM CST [facility] GI ENDOSCOPY Patient Name: Isabel Gaitan Procedure Date: 03/30/2024 8:09 AM Date of : 1960 Admit Type: Outpatient Age: 63 Gender: Male Attending MD: Jason Reis M.D. Room: [facility] ENDOSCOPY ROOM 03 Note Status: Finalized Procedure: [...] On: 03/30/2024 8:09 AM Recognized by the [employer] for promoting quality in endoscopy us Jason Reis MD ENDOSCOPY PROCEDURES Final Resul t * POCT glucose (03/30/2024 7:25 AM DATE PITTER) Glucose, POC 99 70 - 199 mg/dL Blood 03/30/2024 7:25 AM DATE PITTER 03/30/2024 7:25 AM DATE PITTER us Jason Reis MD LAB POCT ORDERABLES - DEVICE Fin al Result [id number] [address] [facility] [place] [address] * US Abdominal Aortic Aneurysm Screening (03/24/2024 3:25 PM DATE PITTER) Anatomical Region Laterality Modality Abdomen Ultrasound 03/27/2024 7:21 AM DATE PITTER Narrative 03/27/2024 7:22 AM DATE PITTER EXAM DESCRIPTION: US ABDOMINAL AORTIC ANEURYSM SCREENING [...] by David Baker M.D. T: Report ID: [id number] Reading Location: [place] [address] Procedure Note David Baker Jr., MD - [...] by David Baker M.D. T: Report ID: [id number] Reading Location: [place] [address] us Malorie Cedillo DO IMG US PROCEDURES Final Re sult * CT Lung Cancer Screening (01/12/2024 4:12 PM DATE PITTER) Anatomical Region Laterality Modality Chest N/A Computed Tomogra phy 01/18/2024 7:49 AM DATE PITTER Narrative 01/18/2024 7:52 AM DATE PITTER EXAM DESCRIPTION: CT LUNG CANCER SCREENING REASON [...] Anibal Diez M.D., JR T: Report ID: [id number] Reading Location: [place] [address] Procedure Note Anibal Diez MD - 01/18/2024 [...] Anibal Diez M.D., JR T: Report ID: [id number] Reading Location: [place] [address] us Malorie Cedillo DO IMG CT PROCEDURES [...] DO LAB BLOOD ORDERABLES Final Result AMMYNER [address] [facility] Department of Laboratories [place], [place] [id number] * PSA screen (12/10/2023 11:41 AM CDT) [...] BLOOD ORDERABLES Final Result Performing Organization Address [facility] Co de Phone Number [facility] [address] [address] * Hepatitis C antibody Blood (12/10/2023 11:41 AM CDT) Pathologist [facility] Hep C Ab Nonreactive Nonreactive Comment: Antibodies [...] GENERAL ORDERABLES Final Result Performing Organization Address [facility] de Phone Number [address] [address] * (ABNORMAL) Albumin Creatinine Ratio, Urine (12/10/2023 [...] LAB URINE ORDERABLES Final Result [facility] [address] [facility] [place] [address] * POCT hemoglobin A1c (12/10/2023 [...] Most Recently Relevant to Health Maintenance Insurance [facility] MEDIC[facility] ADVANTAGE [facility] Address: [facility] [address] [place] [address] [facility] UHC MEDICARE ADVANTAGE [facility] Address: [address] [address] [place] [address] Advance Directives For more information, please contact: [phone] Documents on File Type Date Recorded Patient Wood Last Maker Expl anation ADVANCE DIRECTIVE 12/10/2023 2:13 PM DNR * Full Code (Latest Code Status on File) Date Activated Date Inactivated Comments 11/19/2023 9:14 AM 11/19/2023 5:49 PM Care Teams Usability Architect Relationship Specialty Start Date End Date Malorie Cedillo DO [address] [facility] [address] [place] [address] PCP - General Family Medicine 12/10/23 Brandon De Paz MD [address] [facility] [address] [place] [address] Consulting Physician Cardiology 11/20/23
--- OUTSIDE RECORDS SUMMARY | 2024-05-27 15:06 | XMS_ITS | Clinical Summary ---
Author Organization [facility] Address [address] [facility] [place] [address] Care Team Providers Care Family Nurse Practitioner Name Role Phone Unavailable Primary Care Provider Unavailabl e Source Comments [facility],non-owned Affiliates and Associated Physician Practices is amultiple site organization consisting of ambulatory clinics and hospital sitesin [place], [place], [place] and [place]. This disclosure is being madepursuant to the Care Everywhere program and may not contain all information available regarding this patient. Last updated 17.[facility] Allergies Active Allergy Reactions Criticality Noted Date [...]
--- OUTSIDE RECORDS SUMMARY | 2024-05-27 15:06 | XMS_ITS | Clinical Summary ---
Author Organization [facility] Address [address] [place] [address] Care Team Providers Care Swimmer Name Role Phone Brandon De Paz MD Unavailable [phone] Malorie Cedillo DO Primary Care Provider [phone] Allergies Active Allergy Reactions Criticality Noted Date Comments [place] Nausea only Low 11/19/2023 Penicillins Hives,Swelling,Urticaria Medium [...] adult 12/10/2023 Coronary artery disease invo lving [place] coronary artery of [place] heart without angina pectoris 12/10/2023 Benign prostatic [...] Department Care Team Description 04/25/2024 Results Follow-Up [facility] Nephrology at [address] [place] [address] David Moya MD 04/20/2024 12:25 PM HUMAN PROJECTILE - 04/20/2024 11:59 PM HUMAN PROJECTILE Hospital Encounter [facility] [address] [place] [address] CKD stage 3a, GFR 45-59 ml/min ([facility]) Discharge Disposition: Discharge to home or self care 04/12/2024 10:00 AM HUMAN PROJECTILE Office Visit [facility] Nephrology at [place] [address] [facility] [address] [place] [address] David Moya MD CKD stage 3a, GFR 45-59 ml/min (HCC) (Primary Dx); Hypertension associated with diabetes (HCC); Coronary artery disease involving [place] coronary artery of [place] heart without angina pectoris; Proteinuria, unspecified type; Essential hypertension; Type 2 diabetes mellitus with stage 3a chronic kidney disease, without long-term current use of insulin (HCC) 04/01/2024 Orders Only [facility] Gastroenterology at [place] [address] [facility] [address] [place] [address] Jason Reis MD History of colon polyps (Primary Dx) 03/30/2024 8:15 AM HUMAN PROJECTILE Anesthesia Event [facility] [address] [place] [address] Jeff Hernandez MD 03/30/2024 8:00 AM HUMAN PROJECTILE - 03/30/2024 8:30 AM HUMAN PROJECTILE Surgery [facility] Lab [address] [place] [address] Jason Reis MD COLON REMOVAL SNARE 03/30/2024 6:48 AM HUMAN PROJECTILE - 03/30/2024 9:51 AM HUMAN PROJECTILE Hospital Encounter [facility] GI Lab [address] [place] [address] Jason Reis MD Hx of colonic polyp Discharge Disposition: Discharge to home or self care 03/24/2024 2:24 PM HUMAN PROJECTILE - 03/24/2024 11:59 PM HUMAN PROJECTILE Hospital Encounter [facility] US [address] [place] [address] Cigarette nicotine dependence in remission; Screening for AAA (abdominal aortic aneurysm); Personal history of tobacco use, presenting hazards to health Discharge Disposition: Discharge to home or self care 03/09/2024 Telephone [facility] Family Medicine at [facility] [address] [facility] [address] [place] [address] Malorie Cedillo, Med Refill 03/01/2024 Telephone [facility] Family Medicine at [place] [address] [place] [address] Malorie Cedillo, DO Med Refill [...] on file Legal Sex Male 9:43 PM HUMAN PROJECTILE Gender Identity Not on file Sexual Orientation Not on file Obstetrics History Last Filed Vital Signs Vital Sign Reading Time Taken Comments Blood Pressure 126/77 04/12/2024 9:49 AM HUMAN PROJECTILE Pulse 62 04/12/2024 9:49 AM HUMAN PROJECTILE Temperature 36.4 C (97.5 F) 04/12/2024 9:49 AM HUMAN PROJECTILE Respiratory Rate 15 03/30/2024 9:30 AM HUMAN PROJECTILE Oxygen Saturation 99% 03/30/2024 9:30 AM HUMAN PROJECTILE Inhaled Oxygen Concentration - - Weight 86.2 kg (190 lb) 04/12/2024 9:49 AM HUMAN PROJECTILE Height 170.2 cm (5' 7 ) 04/12/2024 9:49 AM HUMAN PROJECTILE Body Mass Index 29.76 04/12/2024 9:49 AM HUMAN PROJECTILE Plan of Treatment Upcoming Encounters Date Type Department Care Team (Late st Contact Info) Description 09/29/2024 7:30 AM CDT Hospital Encounter [facility] GI Lab [address] [place] [address] Jason Reis MD [address] [place] [address] [address] MENDEZ [address] [place] [address] 09/29/2024 7:30 AM CDT - 09/29/2024 7:45 AM CDT Surgery [facility] [address] [place] [address] Jason Reis MD [address] [place] [address] [address] MENDEZ [address] [place] [address] COLONOSCOPY Scheduled Procedures Name Priority Associated Diagnoses [...] 03/30/2024, 02/08/2024 Medical Devices Implanted Type Area Inspector Sheet Metal Parts Device Identifier Shelf Expiration Date Model / Serial / Lot [employer] Angio-Seal Vip Bondek-Plus 8fr .038in 70cm Hemostatic Latex Free [id number] - [id number] - [id number] Implanted:Qty : 1 on 11/19/2023 by Vipul Olvera MD PhD at [facility] Collagen N/A: Common Femoral Artery [employer] Cyn[employer] 06/15/2024 [id number] / [id number] / [id number] Medtronic Card Vasc Surgery 2.50 X 26mm [place] Rx Coronary Stent [id number] - [id number] - [id number] Implanted:Qty : 1 on 11/19/2023 by Vipul Olvera MD PhD at [facility] Stent N/A: Circumflex Coronary Artery Medtronic Card Vasc Surgery 05/18/2026 [id number] / [id number] / [id number] Procedures Procedure Name Priority Date/Time Associated Diagnosis Comments US KIDNEY COMPLETE Schedule Routine, Read Routine (OP Routine) 04/20/2024 1:23 PM HUMAN PROJECTILE CKD stage 3a, GFR 45-59 ml/min (HCC) SURGICAL PATHOLOGY Routine 03/30/2024 8: 42 AM HUMAN PROJECTILE Hx of colonic polyp COLON REMOVAL SNARE 03/30/2024 8 :18 AM HUMAN PROJECTILE Hx of colonic polyp COLONOSCOPY 03/30/2024 8:09 AM HUMAN PROJECTILE POCT GLUCOSE DEVICE Routine 03/30/2024 7 :25 AM HUMAN PROJECTILE ABDOMINAL AORTIC ANEURYSM SCREENING Schedule Routine, Read Routine (OP Routine) 03/24/2024 3:25 PM HUMAN PROJECTILE Cigarette nicotine dependence in remission Screening for AAA (abdominal aortic aneurysm) Personal history of tobacco use, presenting hazards to health CT LUNG CANCER SCREENING Schedule Routine, Read Routine (OP Routine) 01/12/2024 4:12 PM HUMAN PROJECTILE Cigarette nicotine dependence in remission Personal history [...] 9:16 AM CDT Acute myocardial infarction, unspecified MT type, unspecified artery (HCC) from Last 3 Months or Most Recently Relevant to Health Maintenance Results * US Kidney Complete (04/20/2024 1:23 PM HUMAN PROJECTILE) Anatomical Region Laterality Modality Kidney N/A Ultrasound 04/24/2024 9:56 AM HUMAN PROJECTILE Narrative 04/24/2024 9:57 AM HUMAN PROJECTILE EXAM DESCRIPTION: US KIDNEY COMPLETE REASON FOR [...] by David Baker M.D. T: Report ID: [id number] Reading Location: [id number] Procedure Note David Baker Jr., MD - [...] by David Baker M.D. T: Report ID: [id number] Reading Location: [id number] David Moya MD [facility] PROCEDURES Final Result * Surgical pathology (03/30/2024 8:42 AM HUMAN PROJECTILE) Tissue specimen (specimen) (Polyp(s), colon/colorectal, esophageal, gastric) 03/30/2024 8:42 AM HUMAN PROJECTILE Narrative PATHOLOGY [facility] - 03/31/2024 2:15 PM HUMAN PROJECTILE [facility] Department of Pathology [address] [place] [address] Note to Patients: This report may contain [...] 1960 (Age: 63) Gender: M Address: [address] [address] Hospital #: [id number] Service: Gastro Location: Patient Type: [facility] OUT[facility] Taken: 03/30/2024 Received: 03/30/2024 Accessioned: 03/30/2024 [...] bisected). Entirely submitted. Labeled A1. Jar 0. [facility]/03/30/2024 13:58 DOLLY Burgos, PA ([facility]) Microscopic slide review and interpretation for this case was performed at [facility], Department of Surgical Pathology, [address] [facility], [place] [id number] [id number] CLIA # [id number] us Jason Reis MD LAB PATHOLOGY ORDERABLES Final R esult PATHOLOGY [facility] * Colonoscopy (03/30/2024 8:09 AM HUMAN PROJECTILE) Anatomical Region Laterality Modality Other Narrative Procedure Note Jason Reis MD - 03/30/2024 8:09 AM CST [facility] GI ENDOSCOPY Patient Name: Isabel Gaitan Procedure Date: 03/30/2024 8:09 AM Date of : 1960 Admit Type: Outpatient Age: 63 Gender: Male Attending MD: Jason Reis M.D. Room: [facility] ENDOSCOPY ROOM 03 Note Status: Finalized Procedure: [...] On: 03/30/2024 8:09 AM Recognized by the [place] [employer] for promoting quality in endoscopy us Jason Reis MD ENDOSCOPY PROCEDURES Final Resul t * POCT glucose (03/30/2024 7:25 AM HUMAN PROJECTILE) Glucose, POC 99 70 - 199 mg/dL Blood 03/30/2024 7:25 AM HUMAN PROJECTILE 03/30/2024 7:25 AM HUMAN PROJECTILE us Jason Reis MD LAB POCT ORDERABLES - DEVICE Fin al Result [facility] [address] Department [place] [address] * US Abdominal Aortic Aneurysm Screening (03/24/2024 3:25 PM HUMAN PROJECTILE) Anatomical Region Laterality Modality Abdomen Ultrasound 03/27/2024 7:21 AM HUMAN PROJECTILE Narrative 03/27/2024 7:22 AM HUMAN PROJECTILE EXAM DESCRIPTION: US ABDOMINAL AORTIC ANEURYSM SCREENING [...] by David Baker M.D. T: Report ID: [id number] Reading Location: [id number] Procedure Note David Baker Jr., MD - [...] by David Baker M.D. T: Report ID: [id number] Reading Location: [id number] us Malorie Cedillo DO IMG US PROCEDURES Final Re sult * CT Lung Cancer Screening (01/12/2024 4:12 PM HUMAN PROJECTILE) Anatomical Region Laterality Modality Chest N/A Computed Tomogra phy 01/18/2024 7:49 AM HUMAN PROJECTILE Narrative 01/18/2024 7:52 AM HUMAN PROJECTILE EXAM DESCRIPTION: CT LUNG CANCER SCREENING REASON [...] Anibal Diez M.D., JR T: Report ID: [id number] Reading Location: [place] [address] Procedure Note Anibal Diez MD - 01/18/2024 [...] Anibal Diez M.D., JR T: Report ID: [id number] Reading Location: [place] [address] Malorie Cedillo DO IMG CT PROCEDURES Final [...] Cedillo DO LAB BLOOD ORDERABLES Final [facility] [address] Department [place] [address] * PSA screen (12/10/2023 11:41 [...] BLOOD ORDERABLES Final Result Performing Organization Address [facility] de Phone Number [address] [address] * Hepatitis C antibody Blood (12/10/2023 11:41 AM CDT) Pathologist [facility] Hep C Ab Nonreactive Nonreactive Comment: Antibodies [...] GENERAL ORDERABLES Final Result Performing Organization Address [facility] de Phone Number [address] [address] * (ABNORMAL) Albumin Creatinine Ratio, Urine (12/10/2023 11:36 AM CDT) Pathologist [facility] Albumin Ur 30.5 mg/L Comment: Interpretive Data No reference range established. Current interpretive data was last revised 2018. Creatinine Ur 99.5 mg/dL [facility] Comment: Interpretive Data No reference range established. Current interpretive data was last revised 2018. Albumin Creatinine Ratio, Ur 31(H) 1 - 29 mg/g [facility] Urine 12/10/2023 11:3 6 AM CDT 12/10/2023 12:13 PM CDT Malorie Cedillo DO LAB URINE ORDERABLES Final Result [facility] [address] Department [place] [address] * POCT hemoglobin A1c (12/10/2023 10:20 AM [...] Most Recently Relevant to Health Maintenance Insurance [facility] MEDICARE ADVANTAGE [facility] UHC MEDICARE ADVANTAGE Advance Directives For more information, please contact: [phone] Documents on File Type Date Recorded Patient Enroller Expl anation ADVANCE DIRECTIVE 12/10/2023 2:13 PM DNR * Full Code (Latest Code Status on File) Date Activated Date Inactivated Comments 11/19/2023 9:14 AM 11/19/2023 5:49 PM Care Teams Swimmer Relationship Specialty Start Date End Date Malorie Cedillo DO [address] [facility] [address] MENDEZ [address] [place] [address] PCP - General Family Medicine 12/10/23 Brandon De Paz MD [address] [address] Consulting Physician Cardiology 11/20/23
--- OUTSIDE RECORDS SUMMARY | 2024-05-27 15:06 | XMS_ITS | Clinical Summary ---
Author Organization [facility] Address [address] [place] [address] Care Team Providers Care Print Controller Name Role Phone Anju Ignacio APRN, JOSHUA Primary Care Pr ovider Allergies Active Allergy Reactions Criticality Noted Date Comments [place] Extract Diarrhea 08/17/2023 Penicillins Hives Medium 06/08/2018 [...] drink = 0.6 oz pur e alcohol) [facility] Utilities Answer Date Recorded In the past 12 months has e [employer], gas, oil, or water [employer] threatened to shut off services in your [...] How often do you attend chur or jew services? More than 4 times per year 08/17/2023 Do you belong to any clubs o r organizations such as roman catholic groups, unions, fraternal or athletic groups, or [...] and heating? Not hard at all 08/17/2023 [facility] of Occupat ional Health - Occupational Stress [...] any time in the past 12 m [facility], were you homeless or living in a mcc (including now)? 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 Gender Identity Not on file Sexual Orientation [...] this topic Medical Devices Implanted Type Area Supervisor Histology Device Identifier Shelf Expiration Date Model / Serial / Lot System Coronary Stent Xience Skypoint Everolimus Eluting 3.50 Mm X 38 Mm / Rapid-Exchange - [id number] Implanted:Qty: 1 on 08/18/2023 by Wilber Magaña MD at [facility] IMPLANT Right: Coronary [employer] 01/28/2026 [id number] / [id number] / [id number] Description:Mid RCA System Coronary Stent Xience Skypoint Everolimus Eluting 4.00 Mm X 23 Mm / Rapid-Exchange - [id number] Implanted:Qty: 1 on 08/18/2023 by Wilber Magaña MD at [facility] IMPLANT Right: Coronary [employer] 03/18/2026 [id number] / [id number] Description:RCA Device Perclose Prostyle Suture-Mediate d Closure And Repair System - [id number] Implanted:Qty: 1 on 08/18/2023 by Wilber Magaña MD at [facility] IMPLANT Right: Groin [employer] 04/22/2025 [id number] / [id number] / [id number] Procedures Procedure Name Priority Date/Time Associated Diagnosis Comments CMP (COMPREHENSIVE METABOLIC PANEL) STAT 08/17/2023 2:47 PM CDT from Last 3 Months or Most Recently Relevant to Health Maintenance Results * (ABNORMAL) CMP (Comprehensive Metabolic Panel) (08/17/2023 2:47 PM CDT) SODIUM 136 136 - 145 mmol/L 08/17/2023 3:08 PM CDT [facility] POTASSIUM 3.9 3.5 - 5.1 mmol/L 08/17/2023 3:08 PM CDT [facility] CHLORIDE 106 98 - 107 mmol/L 08/17/2023 3:08 PM CDT [facility] CO2, VENOUS 18(L) 22 - 30 mmol/L 08/17/2023 3:08 PM CDT [facility] ANION GAP 12.0 <18.0 mmol/L 08/17/2023 3:08 PM CDT [facility] GLUCOSE 133(H) 70 - 99 mg/dL 08/17/2023 3:08 PM CDT [facility] BUN 35(H) 8 - 26 mg/dL 08/17/2023 3:08 PM CDT [facility] CREATININE, BLOOD 2.42(H) 0.70 - 1.30 mg/dL 08/17/2023 3:08 PM CDT [facility] BUN/CREATININE RATIO 14 12 - 20 ratio 08/17/2023 3:08 PM CDT [facility] TOTAL PROTEIN 7.0 6.3 - 8.2 g/dL 08/17/2023 3:08 PM CDT [facility] ALBUMIN 4.2 3.5 - 5.0 g/dL 08/17/2023 3:08 PM CDT [facility] A/G RATIO 1.5 1.0 - 2.2 08/17/2023 3:08 PM CDT [facility] CALCIUM 9.2 8.7 - 10.5 mg/dL 08/17/2023 3:08 PM CDT [facility] T BILI 0.6 0.2 - 1.2 mg/dL 08/17/2023 3:08 PM CDT [facility] SGOT (AST) 24 5 - 34 U/L 08/17/2023 3:08 PM T [facility] SGPT (ALT) 20 0 - 55 U/L 08/17/2023 3:08 PM CDT [facility] ALKALINE PHOSPHATASE 38(L) 40 - 150 U/L 08/17/2023 3:08 PM CDT [facility] GFR, ESTIMATED 29(L) >=60 08/17/2023 3:08 PM T [facility] Comment: Creatinine Clearance is the preferred criteria for selecting drug dose adjustments in renally impaired patients. The GFR is provided as additional pertinent clinical information. GFR is reported in mL/min/1.73 sq m. Calculation based on the Chronic Kidney Disease Epidemiology Collaboration (CKD- EPI) equation refit without adjustment for race. GFR, EST. 33(L) >=60 024 3:08 PM CDT [facility] GFR, EST. NONAFRICAN 27(L) >=60 08/17/2023 3:08 PM T [facility] Blood Venipuncture / Unknown 08/17/2023 2:47 PM CDT 08/17/2023 2:51 PM CDT us Dann Mancini MD CHEMISTRY ORDERABLES Celena Esparza [facility] [address] [place] [address], from Last 3 Months or Most Recently Relevant to Health Maintenance Insurance Advance Directives * Full Code (Latest Code Status on File) Date Activated Date Inactivated Comments 08/17/2023 10:05 PM 08/19/2023 12:54 PM CPR-Full T reatment: FULL ARREST: Attempt Resuscitation/CPR wit intubation and mechanical ventilation. PRE-ARREST: Use entire range of life support measures to stabilize the patient. Care Teams Print Controller Relationship Specialty Start Date End Date Anju Ignacio, CLERICAL RECEPTIONIST, JUDICIAL REGISTRAR [address] [place] [address] PCP - General Advanced Practice Nurse 08/17/23
[2024-05-27 15:36] VITALS: BP 174/75; PULSE 65; RESP 12; O2SAT 100
[2024-05-27] MEDS: ACETAMINOPHEN 500 MG TABLET 1000 MG PO (15:54)
[2024-05-27 16:02] VITALS: BP 165/75; PULSE 73; RESP 20; O2SAT 97
== END 2024-05-27 16:09 | disposition home or self-care (01) ==
PROVIDERS: Emergency Provider Physician Assistant; PCP Family Medicine
DX: S22.31XA Fracture of one rib, right side, initial encounter for closed fracture (principal); K44.9 Diaphragmatic hernia without obstruction or gangrene; W01.198A Fall on same level from slipping, tripping and stumbling with subsequent striking against other object, initial encounter; Y93.79 Activity, other specified sports and athletics
CPT/HCPCS: 71250; 99284; A9270